=== PATIENT | male | born 1965 | race Caucasian/White ===

== ENCOUNTER → 2022-03-31 10:23 | Outpatient (CLI) | payer BC, SELFPAY ==
--- NOTE | 2022-03-31 | DI.RAD.S_ITS ---
PROCEDURE: XR WRIST LT MIN 3V INDICATIONS: ACUTE PAIN OF LEFT WRIST TECHNIQUE: 4 views of the wrist were acquired. COMPARISON: None. FINDINGS: Bones: There is an ununited ulnar styloid fracture of uncertain acuity. Scaphoid view: No evidence of scaphoid fracture. Soft tissues: No suspicious soft tissue calcifications. IMPRESSION: Ununited ulnar styloid fracture of uncertain acuity. Dictated by: Galo Quinn M.D. on 03/31/2022 at 11:58 Approved by: Galo Quinn M.D. on 03/31/2022 at 11:58
== END ==
PROVIDERS: PCP Internal Medicine; Referring Provider Physician Assistant; Visit Provider Physician Assistant
DX: S52.612K Displaced fracture of left ulna styloid process, subsequent encounter for closed fracture with nonunion (principal); M25.532 Pain in left wrist
CPT/HCPCS: 73110

== ENCOUNTER 2022-06-15 10:00 | Emergency (ER) | payer BC, SELFPAY ==
[2022-06-15] VITALS (10 sets, daily range): BP systolic 126–171; BP diastolic 76–92; PULSE 60–95; RESP 13–18; TEMP 36.1; O2SAT 97–100; BMI 29.7
[2022-06-15 10:47] LABS: Add Manual Diff / Slide Review NO; Basophils Absolute Auto 0 /uL (0-100); Basophils Percent Auto 0.4 % (0-2); Eosinophils Absolute Auto 200 /uL (0-450); Eosinophils Percent Auto 2.4 % (2-4); Hematocrit 40.7 % (41-53); Hemoglobin 14.1 g/dL (13.5-17.5); Lymphocytes Absolute Auto 1000 /uL (1100-4500); Lymphocytes Percent Auto 13.6 % (25-40); Mean Corpuscular HGB Conc 34.7 % (30-36); Mean Corpuscular Hemoglobin 30.7 PG (26-34); Mean Corpuscular Volume 88.4 fL (80-100); Monocytes Absolute Auto 600 /uL (0-900); Monocytes Percent Auto 8.7 % (3-14); Neutrophils Absolute Auto 5500 /uL (1500-7000); Neutrophils Percent Auto 74.9 % (50-75); Platelet Count 179 X10^3/uL (150-400); Red Cell Distribution Width 13.2 % (11.6-14.8); White Blood Cell Count 7.4 X10^3/uL (4.5-11.0)
[2022-06-15 11:00] LABS: Alanine Aminotransferase 36 IU/L (<50); Albumin 4.2 g/dL (3.5-5.0); Albumin Globulin Ratio 1.4 (1.0-2.8); Alkaline Phosphatase 64 U/L (38-126); Aspartate Aminotransferase 25 IU/L (17-59); BUN Creatinine Ratio 12.7 (6-22); Bilirubin Total 1.5 mg/dL (0.2-1.3); Blood Urea Nitrogen 17 mg/dL (9-20); Calcium 9.3 mg/dL (8.4-10.2); Carbon Dioxide 30 mmol/L (22-32); Chloride 99 mmol/L (98-107); Estimated Glomerular Filt Rate > 60 mL/min (>60); Globulin 2.9 g/dL (1.7-4.1); Glucose 124 mg/dL (70-100); HEMOLYSIS 17 (0-50); Lipase 69 U/L (23-300); Potassium 4.2 mmol/L (3.4-5.1); Sodium 134 mmol/L (137-145); Total Protein 7.1 g/dL (6.3-8.2)
--- NOTE | 2022-06-15 11:30 | ED.ABDPAIN ---
HPI - Abdominal Pain General Chief Complaint: Abdominal Pain Stated Complaint: stomach pain blockage reocurring 4 years Time Seen by Provider: 06/15/22 11:26 Source: patient Mode of arrival: Ambulatory History of Present Illness HPI narrative: This is a 57 year old male with history of diabetes hypertension dyslipidemia on metformin, atorvastatin, glimepiride and lisinopril. Patient states presents today for reoccurring abdominal discomfort. Patient states it is always on the left side that is fairly localized but sometimes spreads. States it has been going on intermittently for 4 years. He states most recent episode started yesterday sort of his left side and then radiates back towards his flank. He describes it as a burning pain. He states it is intermittent will sometimes go a couple months and then resolve. Used to be just a couple hours yesterday's been lasting throughout today has resolved intermittently but then returns. He states is having increasing frequency of symptoms. He states it used to happen more at nighttime but is happening sometimes during the day now. He is had issues for the last 4 days. He denies fevers or chills. He does feel nauseated with the pain in the last 2 days. No vomiting. States he can sometimes be constipated but has been stooling regularly had a bowel movement yesterday was soft formed without any black or blood. Patient states he took Tylenol his last dose was at 3:00 a.m. states it is significantly help the pain but not resolved it. He has had a colonoscopy for about a year ago but never had any imaging. No prior surgeries. No known drug allergies. No tobacco, alcohol once monthly, no illicit. Related Data Previous Rx's Medication Instructions Recorded tramadol 50 mg tablet 50 mg PO Q6H PRN pain #10 tabs 06/15/22 Allergies Allergy/AdvReac Type Severity Reaction Status Date / Time No Known Drug Allergies Allergy Verified 06/15/22 10:22 Review of Systems Review of Systems ROS Unobtainable: All systems reviewed & are unremarkable except as noted in HPI and below Patient History Social History Smoking Status: Never smoker Smoking Status: Never smoker alcohol intake frequency: holidays/special occasions only Substance Use Type: does not use Exam Narrative Exam Narrative: GENERAL: Alert and oriented x three, male in mild distress. HEENT: Head normocephalic, atraumatic, EOMI, pupils reactive, face symmetric, moist mucous membranes NECK: Supple, full range of motion CARDIOVASCULAR: Regular rate and rhythm without murmurs, rubs or gallops. RESPIRATORY: Breath sounds equal bilaterally, no wheezes rales or rhonchi. ABDOMEN: Soft, nontender. Normoactive bowel sounds all 4 quadrants. No guarding or rebound, rigidity, no mass. Patient I am able to palpate the area that he states typically hurts, no mass sort of on the left lateral upper abdomen about 3 cm below the ribs. There is no warmth, no erythema, no rash or skin changes. Patient has minimal tenderness. No other tenderness on exam. : No CVA tenderness EXTREMITIES: Normal range of motion, no clubbing or edema. Neurovascularly intact NEUROLOGICAL: Cranial nerves II through XII grossly intact. Moving all extremities SKIN: Warm, dry, no petechiae, no rashes or lesions. Initial Vital Signs Initial Vital Signs: Vital Signs Pulse Rate 95 H 06/15/22 10:12 Blood Pressure 171/92 H 06/15/22 10:12 Pulse Oximetry 99 06/15/22 10:12 Course Orders Ordered: ED Orders 06/15/22 10:28 EKG-12 Lead Stat 06/15/22 10:36 Complete Blood Count AUTO DIFF Stat Comprehensive Metabolic Panel Stat Lipase Stat 06/15/22 11:53 CT kidney ureter bladder (KUB) Stat 06/15/22 12:31 Urine Microscopic Stat Discontinued Medications Ondansetron HCl (Ondansetron 4 Mg Odt) 4 mg PO NOW PRN PRN Reason: Nausea And Vomiting Ondansetron HCl (Ondansetron 4 Mg/2 Ml Inj) 4 mg IV NOW PRN PRN Reason: Nausea And Vomiting Vital Signs Vital signs: Vital Signs - 8 hr 06/15/22 10:22 06/15/22 10:12 06/15/22 10:12 Temperature 97.0 F L Pulse Rate 77 95 H Respiratory Rate 18 Blood Pressure 171/92 H 171/92 H Pulse Oximetry 98 99 Oxygen Delivery Method Room Air 06/15/22 10:22 06/15/22 10:22 06/15/22 10:30 Temperature Pulse Rate 65 Respiratory Rate 13 Blood Pressure 148/79 H 147/81 H Pulse Oximetry 99 Oxygen Delivery Method 06/15/22 10:30 06/15/22 11:00 06/15/22 11:00 Temperature Pulse Rate 71 60 Respiratory Rate 14 14 Blood Pressure 134/82 Pulse Oximetry 98 97 Oxygen Delivery Method 06/15/22 11:30 06/15/22 11:30 06/15/22 12:44 Temperature Pulse Rate 72 Respiratory Rate 14 Blood Pressure 126/76 138/84 Pulse Oximetry 97 Oxygen Delivery Method 06/15/22 12:44 06/15/22 13:00 06/15/22 13:30 Temperature Pulse Rate 69 69 63 Respiratory Rate Blood Pressure Pulse Oximetry 98 98 100 Oxygen Delivery Method 06/15/22 14:00 06/15/22 14:13 06/15/22 14:13 Temperature Pulse Rate 70 73 Respiratory Rate Blood Pressure 128/84 Pulse Oximetry 99 99 Oxygen Delivery Method MDM - Abdominal Pain Lab Data 06/15/22 10:36 06/15/22 10:36 Labs: Lab Results 06/15/22 06/15/22 06/15/22 Range/Units 10:36 10:36 12:31 WBC 7.4 (4.5-11.0) X10^3/uL RBC 4.60 (4.5-5.9) X10^6/uL Hgb 14.1 (13.5-17.5) g/dL Hct 40.7 L (41-53) % MCV 88.4 (80-100) fL MCH 30.7 (26-34) PG MCHC 34.7 (30-36) % RDW 13.2 (11.6-14.8) % Plt Count 179 (150-400) X10^3/uL Neut % (Auto) 74.9 (50-75) % Lymph % (Auto) 13.6 L (25-40) % [place] % (Auto) 8.7 (3-14) % Eos % (Auto) 2.4 (2-4) % Baso % (Auto) 0.4 (0-2) % Neut # (Auto) 5500 (7624-0274) /uL Lymph # (Auto) 1000 L (5176-8229) /uL [place] # (Auto) 600 (0-900) /uL Eos # (Auto) 200 (0-450) /uL Baso # (Auto) 0 (0-100) /uL Sodium 134 L (137-145) mmol/L Potassium 4.2 (3.4-5.1) mmol/L Chloride 99 (98-107) mmol/L Carbon Dioxide 30 (22-32) mmol/L BUN 17 (9-20) mg/dL Creatinine 1.34 H (0.66-1.25) mg/dL Estimated GFR > 60 (>60) mL/min BUN/Creatinine Ratio 12.7 (6-22) Glucose 124 H (70-100) mg/dL Calcium 9.3 (8.4-10.2) mg/dL Total Bilirubin 1.5 H (0.2-1.3) mg/dL AST 25 (17-59) IU/L ALT 36 (<50) IU/L Alkaline Phosphatase 64 (38-126) U/L Total Protein 7.1 (6.3-8.2) g/dL Albumin 4.2 (3.5-5.0) g/dL Globulin 2.9 (1.7-4.1) g/dL Albumin/Globulin Ratio 1.4 (1.0-2.8) Lipase 69 (23-300) U/L Urine RBC 0-1/hpf (0-5/HPF) Urine WBC None seen (0-5/HPF) Urine Bacteria None seen (None) Ur Culture Indicated? Cult not indicated Point of care testing: Urine Dip Bedside Urine Glucose Negative Bedside Urine Bilirubin - Negative Bedside Urine Ketone +/- 5 Urine Specific [place] 1.015 Bedside Urine Occult Blood +/- Bedside Urine pH 6.0 Bedside Urine Protein - Negative Bedside Urine Urobilinogen - Negative Bedside Urine Nitrite - Negative Bedside Urine Leukocytes - Negative Esterase Imaging Data CT scan - abdomen/pelvis: Radiologist's Impression: [place] [address] CT Scan Report Signed Patient: Baljit Paez MR#: [id number] : 1965 Acct:[id number] Age/Sex: 57 / M Date of Service: 06/15/22 Loc: ED Accession Number: [id number] ?? Procedure: CT kidney ureter bladder (KUB) Ordering Provider: Mini Hernandez D.O. PROCEDURE:? CT KIDNEY URETER BLADDER (KUB) ? INDICATIONS:? left flank to abd pain, localized more upper intermittent ? TECHNIQUE:? Axial sections were acquired from the lung bases to the pubic symphysis.? Coronal and sagittal reformats were performed.? For radiation dose reduction, the following was used: ?automated exposure control, adjustment of mA and/or kV according to patient size.? ? COMPARISON:? None. ? FINDINGS:? Image quality:? Excellent.? ? Lung bases:? Unremarkable.? ? Heart:? No significant findings. ? URINARY: Right Kidney: ? No stones or hydronephrosis.? Right Ureter:? No hydroureter.? ? Left Kidney:? Moderate left hydronephrosis.? There is a 8 mm calculus within the left renal pelvis, with Hounsfield units of 138. Moderate left perinephric fat stranding is present.? Left Ureter:? No hydroureter.? ? Bladder:? Normal wall thickness. No stones. ? ? ? ABDOMEN: Liver:? Unremarkable.? ? Gallbladder:? Unremarkable.? ? Biliary ducts:? Unremarkable.? ? Pancreas:? Unremarkable.? ? Spleen:? Unremarkable.? ? Adrenal Glands:? Unremarkable.? ? ? Stomach and Bowel:? Stomach, small bowel loops, and colon are unremarkable.? Normal appendix. Peritoneum:? No abnormal intraperitoneal fluid.? No free air.? ? Ventral Wall: ? No hernia.? Abdominal Nodes:? No enlarged retroperitoneal or mesenteric lymph nodes.? Vessels:? Aorta and inferior vena cava are normal in size.? ? PELVIS: Pelvic Organs:? Unremarkable.? ? Pelvic Nodes: Unremarkable. Miscellaneous: No inguinal hernias are seen. ? ? ? Bones:? Unremarkable. ? IMPRESSION:? ? 1.? Left renal pelvic calculus associated with moderate left hydronephrosis. 2. Normal appendix.? ? Dictated by: Galo Quinn M.D. on 06/15/2022 at 12:05 ? ? Approved by: Galo Quinn M.D. on 06/15/2022 at 12:08?? ECG Data Attestation: I personally reviewed and interpreted this ECG as follows: Prior ECG tracings: not available for review Interpretation: Sinus rhythm rate of 63 PA 174 QRS of 98 QTC 411. T-wave inverted in lead 3. Acute elevation appreciated patient does have some nonspecific change. He does not have priors for comparison. MDM Narrative Medical decision making narrative: This is a 57-year-old male who is had intermittent abdominal pain in the same area on and off for 4 years. Patient states it is becoming little bit more frequent and painful in terms of intensity. He does have a history of diabetes hypertension dyslipidemia. Exam areas fairly localized on the left side there is no obvious palpable hernia there is no obvious rash, skin change or shingles. Some patient's symptoms seem a little bit more consistent with kidney stone. He was concerned about obstruction but he has been stooling regularly he is never had obstructive symptoms in terms of vomiting or not passing flatus or stool. Patient's labs show CBC with normal white count, hemoglobin of 14 normal platelets. Creatinine is 1.34 I do not have priors for comparison he is unsure if this is his baseline or not. He does follow regularly with a physician. Electrolytes are normal, bilirubin is 1.5 AST ALT are 08/08/2035 and lipase is 69 pain is all localized to the left. Patient was able to give a urine sample after discussion plan for CT KUB to evaluate for kidney stone mass or other change I do not have contrast CT available today. We discussed ultrasound but this would not give any visualization of the bowel which I think might be helpful. Patient's CT does show an 8 mm left renal pelvis stone. Patient's creatinine is 1.32 was able to find labs from his prior physician he was 0.98 on 06/10 and 1.1 in 2021 for his creatinine. Discussed with patient his pain is well-controlled. Discussed I think this is the source of his pain today. Talked with Urology as I think he would benefit from potential intervention but likely does not require hospitalization. Urine does not show signs of infection today, does not have nitrates leuks no bacteria, no white cells 0-[address] Kasper with Urology: He reviewed patient's images and urine. We discussed creatinine is bumped up a little bit there is some moderate hydro. We do not have priors imaging for evaluation. He states it maybe ball valving causing some of his symptoms intermittently. He is happy to see the patient in the office both agree that patient is appropriate for discharge today his pain is well-controlled he is currently asymptomatic at this time. Discussed return precautions he does recommend patient follow-up with him for intervention. Discharge Plan Departure Patient Disposition: Home Clinical Impression: Kidney stone on left side Instructions: Kidney Stones -- Adult Activity Restrictions/Additional Instructions: You have a kidney stone visualized in the left renal pelvis this is where the kidney and ureter meet and is likely causing your intermittent pain. Please set up follow-up with Urology, I spoke with them today. Call the office to set up an appointment. They recommend that you see them you will likely need intervention for your kidney stone. You may take Tylenol up to a 1000 mg every 6 hours as needed for pain. If in adequate you can take tramadol 1-2 tablets every 6 hours as needed. This medication can make you sleepy do not drive, perform hazardous activities or make any major decisions while taking it. This medication will make you constipated please take a stool softener once to twice daily until stools are soft and regular. Prescription sent to [facility] in [place]. Please return for fevers, worsening or intractable pain, persistent vomiting, black or bloody stools, passing out or other new or concerning changes. Prescriptions: New tramadol 50 mg tablet 50 mg PO Q6H PRN (Reason: pain) Qty: 10 0RF Referrals: Eddi Kasper MD [Physician] - Liz Tony MD [Primary Care Provider] - Stand Alone Forms: Patient Portal/API
--- NOTE | 2022-06-15 11:53 | DI.CT.S_ITS ---
PROCEDURE: CT KIDNEY URETER BLADDER (KUB) INDICATIONS: left flank to abd pain, localized more upper intermittent TECHNIQUE: Axial sections were acquired from the lung bases to the pubic symphysis. Coronal and sagittal reformats were performed. For radiation dose reduction, the following was used: automated exposure control, adjustment of mA and/or kV according to patient size. COMPARISON: None. FINDINGS: Image quality: Excellent. Lung bases: Unremarkable. Heart: No significant findings. URINARY: Right Kidney: No stones or hydronephrosis. Right Ureter: No hydroureter. Left Kidney: Moderate left hydronephrosis. There is a 8 mm calculus within the left renal pelvis, with Hounsfield units of 138. Moderate left perinephric fat stranding is present. Left Ureter: No hydroureter. Bladder: Normal wall thickness. No stones. ABDOMEN: Liver: Unremarkable. Gallbladder: Unremarkable. Biliary ducts: Unremarkable. Pancreas: Unremarkable. Spleen: Unremarkable. Adrenal Glands: Unremarkable. Stomach and Bowel: Stomach, small bowel loops, and colon are unremarkable. Normal appendix. Peritoneum: No abnormal intraperitoneal fluid. No free air. Ventral Wall: No hernia. Abdominal Nodes: No enlarged retroperitoneal or mesenteric lymph nodes. Vessels: Aorta and inferior vena cava are normal in size. PELVIS: Pelvic Organs: Unremarkable. Pelvic Nodes: Unremarkable. Miscellaneous: No inguinal hernias are seen. Bones: Unremarkable. IMPRESSION: 1. Left renal pelvic calculus associated with moderate left hydronephrosis. 2. Normal appendix. Dictated by: Galo Quinn M.D. on 06/15/2022 at 12:05 Approved by: Galo Quinn M.D. on 06/15/2022 at 12:08
[2022-06-15 12:41] LABS: Bacteria Urine None Seen; Culture Indicated Urine Cult Not Indicated; RBC Urine 0-1/HPF (0-5/HPF); WBC Urine None Seen (0-5/HPF)
== END 2022-06-15 14:21 | disposition home or self-care (01) ==
PROVIDERS: Emergency Provider Emergency Medicine; PCP Internal Medicine
DX: N20.0 Calculus of kidney (principal); R10.9 Unspecified abdominal pain
CPT/HCPCS: 36415; 74176; 80053; 81003; 81015; 83690; 85025; 93005; 99284

== ENCOUNTER → 2022-06-22 13:59 | Outpatient (CLI) | payer BC, SELFPAY ==
--- NOTE | 2022-06-22 14:01 | DI.RAD.S_ITS ---
PROCEDURE: XR KUB INDICATIONS: Left kidney stone TECHNIQUE: One view of the abdomen acquired. COMPARISON: [facility], CT, CT KIDNEY URETER BLADDER (KUB), 06/15/2022, 11:51. FINDINGS: Surgical changes and devices: None. Bowel: Bowel gas pattern is normal. Soft tissues: Left kidney stone measuring approximately 1.4 cm, appears similar. No suspicious abdominal calcifications. Visualized solid organ contours appear normal in size. Bones: No suspicious bony lesions. IMPRESSION: Left kidney stone appears unchanged. Dictated by: Alberto Acosta M.D. on 06/22/2022 at 16:15 Approved by: Alberto Acosta M.D. on 06/22/2022 at 16:16
== END ==
PROVIDERS: PCP Internal Medicine; Referring Provider Urology; Visit Provider Urology
DX: N20.0 Calculus of kidney (principal); R31.29 Other microscopic hematuria; R39.9 Unspecified symptoms and signs involving the genitourinary system; R35.0 Frequency of micturition; Z77.22 Contact with and (suspected) exposure to environmental tobacco smoke (acute) (chronic)
CPT/HCPCS: 74018; 81002

== ENCOUNTER 2022-06-29 06:09 | Day surgery (SDC) | payer BC, SELFPAY ==
[2022-06-29] VITALS (7 sets, daily range): BP systolic 140–157; BP diastolic 84–101; PULSE 61–87; RESP 12–20; TEMP 36.1–36.3; O2SAT 96–100; BMI 29.0
[2022-06-29] MEDS: LACTATED RINGERS 1,000 ML 42 ML IV ×2 (07:15→08:12)
--- NOTE | 2022-06-29 07:36 | PM.PREOP ---
Pre-operative Note COVID-19 COVID-19 status: Not tested Criteria for continued procedure: Non-surgical alternatives not available or appropriate per current SOC Interval Note History & Physical reviewed/Exam performed by Physician: Yes Changes to H&P: No
[2022-06-29] MEDS: CEFAZOLIN 2 GM/100 ML PREMIX 100 ML IV (07:40)
--- NOTE | 2022-06-29 07:59 | SUR.OPER ---
Lithotomy on ESWL bed, head on pillow, arms secured at sides and wrapped in gelpads. Legs secured in stirrups provided for ESWL.
--- NOTE | 2022-06-29 08:31 | PM.OP.1 ---
Procedure & Clinicians Procedure: Left extracorporeal shockwave lithotripsy with cystoscopy and left ureteral stent placement Same procedure as scheduled: Yes Indications: This 57-year-old male presented with complaints of abdominal pain and undergoing workup with a CT scan was found to have a stone in his left renal pelvis. He presents this time for treatment of the stone. Surgeon: Eddi Kasper Click Yes if Unassisted: Yes Anesthesia Type: General Operative Notes Findings: Urethral meatus is normal, urethra is normal along its length with normal mucosa sphincter as well coapted, the prostate shows minimal to moderate obstructive character with a minimally elevated bladder neck and normal mucosa. Ureteral orifices in normal position with clear efflux no other mucosal or other abnormality was noted within the bladder. The stone was noted to be in the renal pelvis. It received 1250 shocks at level 7 and fragmented very very well. In fact it appeared to be a cloud of dust. A 7 Slovenian by multi length stent was left in good position in the left collecting system without a string. Closure Type: not applicable Specimen(s): none sent Prosthetic devices, grafts, tissues, transplants, or devices: Seven [place]ian by multi length ureteral stent in the left collecting system no string Estimated Blood Loss (mL): 5 Blood products transfused: none Procedure in detail: Procedure in detail: After informed consent was obtained, the patient was identified and brought to the operating room where he was placed in the supine position on the lithotriptor patient then had anesthesia induced and maintained. Showing an adequate level of anesthesia the patient was transitioned to the lithotomy position where he was prepped, draped, prepared for Transurethral procedure. After prepping, draping, time-out and ensuring an adequate level of anesthesia a 22 Slovenian cystoscope was passed through the urethra prostate and into the bladder where cystoscopy was performed. The left ureteral orifice was once again identified and a guidewire was passed up in the collecting system under fluoroscopic visualization. The stent was then passed over the wire in a coaxial fashion position in the renal pelvis under fluoroscopic visualization in the bladder under direct vision. Then using the grasping forceps the nylon harness was removed and the stent was left in good position. Bladder was drained scope was removed. The patient then had the stone positioned at F2 via the imaging system and shockwave delivered at level 7 gradually ramping up to that level. Periodic reimaging and re localization of the stone was performed to ensure maximal androgen delivery to the stone. At a 1000 shock waves shockwave head was rotated out and fluoroscopy performed there sterile appeared to be a little bit of density within a cloud of dust and so another 250 shockwave for delivered at level 7. With this completed the shockwave head was then once again rotated out fluoroscopy performed and the stone appeared to be completely fragmented. At this point the patient was awakened having tolerated the procedure well and transferred to the postanesthesia care unit for recovery. There were no complications. Complications: none Post-operative Condition: stable Disposition: PACU Plan for aftercare: Discharge to home, patient to strain urine and save any fragments and bring these to follow-up.
[2022-06-29] MEDS: OXYBUTYNIN 5 MG TABLET PO (08:45)
[2022-06-29] MEDS: PHENAZOPYRIDINE 100 MG TABLET 200 MG PO (08:45)
== END 2022-06-29 09:16 | disposition home or self-care (01) ==
PROVIDERS: PCP Internal Medicine; Referring Provider Urology; Visit Provider Urology
PROC: (CPT 50590; principal; 2022-06-29 07:45)
PROC: (CPT 50590; 2022-06-29 07:45)
DX: N20.0 Calculus of kidney (principal)
CPT/HCPCS: 50590; 52332; 82962; J0690; J1100; J1885; J2250; J2405; J2704; J3010

== ENCOUNTER → 2022-07-02 12:49 | Outpatient (CLI) | payer BC, SELFPAY ==
--- NOTE | 2022-07-02 12:50 | DI.RAD.S_ITS ---
PROCEDURE: XR KUB INDICATIONS: hematuria TECHNIQUE: One view of the abdomen acquired. COMPARISON: [facility], , XR KUB, 06/22/2022, 13:59. FINDINGS: Surgical changes and devices: Left-sided ureteral stent is seen in place. Bowel: Bowel gas pattern is normal. Soft tissues: Ill-defined calcifications are seen in lower pole of left kidney. Visualized solid organ contours appear normal in size. Bones: No suspicious bony lesions. IMPRESSION: Suggestion of small stones in lower pole left kidney. Left-sided ureteral stent in place. No gross free air. Dictated by: Linden Rivera M.D. on 07/02/2022 at 13:25 Approved by: Linden Rivera M.D. on 07/02/2022 at 13:25
== END ==
PROVIDERS: PCP Internal Medicine; Referring Provider Urology; Visit Provider Urology
DX: R31.29 Other microscopic hematuria (principal); N20.0 Calculus of kidney; Z96.0 Presence of urogenital implants
CPT/HCPCS: 74018; 82365

== ENCOUNTER → 2022-07-02 13:10 | Outpatient (CLI) | payer BC, SELFPAY ==
[2022-07-10 00:07] LABS: Size 4x9 mm (.)
== END ==
PROVIDERS: Urology; PCP Internal Medicine; Visit Provider Specialist
DX: N20.0 Calculus of kidney (principal)
CPT/HCPCS: 82365

== ENCOUNTER → 2022-07-09 09:14 | Outpatient (CLI) | payer BC, SELFPAY | PROVIDERS: PCP Internal Medicine; Visit Provider Urology | DX: N20.0 Calculus of kidney (principal); R31.29 Other microscopic hematuria; R39.9 Unspecified symptoms and signs involving the genitourinary system; Z96.0 Presence of urogenital implants | CPT/HCPCS: 81002; 87077; 87086; 87185; 87186 ==

== ENCOUNTER 2022-07-11 19:57 | Inpatient (IN) | payer BC, SELFPAY ==
[2022-07-11] VITALS (16 sets, daily range): BP systolic 80–116; BP diastolic 52–73; PULSE 84–137; RESP 17–29; TEMP 36.9–38.4; O2SAT 93–98; BMI 29.8
--- NOTE | 2022-07-11 20:12 | DI.RAD.S_ITS ---
PROCEDURE: XR ACUTE ABDOMEN SERIES INDICATIONS: suspected sepsis TECHNIQUE: One view chest and two views of the abdomen were acquired. COMPARISON: [facility], CT, CT KIDNEY URETER BLADDER (KUB), 06/15/2022, 11:51. [facility], CR, XR KUB, 07/02/2022, 12:50. FINDINGS: Surgical changes and devices: A left ureteral stent appears similar in position. Chest: There are low lung volumes with a few linear opacities medially in the lung bases likely representing atelectasis. Heart size is normal. No pleural effusions. No pneumoperitoneum. Abdomen: There are few scattered small bowel air-fluid levels without abnormal gaseous distention of bowel loops. A few clustered densities projecting over the inferior pole of the left kidney suggestive of renal stones are redemonstrated. Bones: No suspicious bony lesions. IMPRESSION: 1. Nonspecific bowel gas pattern with a few scattered air-fluid levels within nondilated small bowel loops. The differential includes a gastroenteritis, ileus, or developing obstruction. 2. Small clustered densities suggestive of left renal stones redemonstrated. Dictated by: Payam Rollins M.D. on 07/11/2022 at 21:10 Approved by: Payam Rollins M.D. on 07/11/2022 at 21:14
--- NOTE | 2022-07-11 20:30 | ED_ITS ---
HPI - General Adult <Baljit Chand DO - Last Filed: 07/12/22 18:11> General Chief complaint: Urogenital-Male Stated complaint: Shaking, Hot Time Seen by Provider: 07/11/22 20:17 Source: patient Mode of arrival: Ambulatory Limitations: no limitations History of Present Illness HPI narrative: Patient is a 57-year-old male who is here for evaluation of fevers had fast heart rate not feeling well. His symptoms have been going on for approximately 48 hours. He does have a left-sided ureteral stent that was placed a couple weeks ago. He would an appointment on Tuesday with his urologist to discuss potentially having the stent removed however the decision was made to keep it in a while longer because there was still some debris in his left kidney based on a x-ray. States that after that appointment he started to feel poorly. He did have a urine sample performed at that time. He states over the past 48 hours his symptoms have worsened. He is still tolerating oral intake. Is having fevers. No chest pain. No shortness of breath. Is having some dysuria but this really has not changed since having the catheter in place. He is not having any blood in his urine. No change in bowel habits. Is not currently on antibiotics. Related Data Home Medications Medication Instructions Recorded Confirmed atorvastatin 20 mg tablet 20 mg PO DAILY 06/22/22 07/12/22 glimepiride 20 mg PO DAILY 06/22/22 07/12/22 lisinopril 20 mg tablet 20 mg PO DAILY 06/22/22 07/12/22 metformin 1,000 mg tablet 1,000 mg PO BID 06/22/22 07/12/22 Allergies Allergy/AdvReac Type Severity Reaction Status Date / Time No Known Drug Allergies Allergy Verified 07/09/22 09:02 Review of Systems <DO Edison Diaz Last Filed: 07/12/22 18:11> Review of Systems ROS Unobtainable: All systems reviewed & are unremarkable except as noted in HPI and below Patient History <DO Edison Diaz Last Filed: 07/12/22 18:11> Medical History History of broken finger History of high blood pressure History of kidney stones Hx of diabetes mellitus Lower urinary tract symptoms Microscopic hematuria Retained ureteral stent Secondhand smoke exposure Family History Father CAD (coronary artery disease) Hyperlipidemia Hypertension Mother Diabetes mellitus Hyperlipidemia Hypertension Thyroid disorder Urinary tract infection Social History marital status: unmarried,single number of children: 0 household members: none Smoking Status: Never smoker alcohol intake: former caffeine: Yes Type(s) of exercise: none Smoking Status: Never smoker alcohol intake frequency: holidays/special occasions only Substance Use Type: does not use Exam <DO Edison Diaz Last Filed: 07/12/22 18:11> Initial Vital Signs Initial Vital Signs: Vital Signs Temperature 98.4 F 07/11/22 20:05 Pulse Rate 137 H 07/11/22 20:05 Respiratory Rate 22 07/11/22 20:05 Blood Pressure 116/73 07/11/22 20:05 Pulse Oximetry 98 07/11/22 20:05 Oxygen Delivery Method Room Air 07/11/22 20:05 Const General: cooperative and ill appearing HENMT Head: normal to inspection and normocephalic Resp Effort & Inspection: normal respiratory effort Auscultation: clear to auscultation bilaterally Cardio Rate: tachycardic Rhythm: regular rhythm GI Inspection: normal to inspection Palpation: soft, No firm and No tender Skin General: no rashes or lesions noted Neuro General: patient alert, patient awake, patient oriented x3 and moves all extremities Cognition: normal cognition Speech: speech normal Extrem General: normal to inspection and capillary refill normal Psych Appearance: grossly normal and well kempt <Rosario Sargent DO - Last Filed: 07/12/22 19:31> Initial Vital Signs Initial Vital Signs: Vital Signs Temperature 98.4 F 07/11/22 20:05 Pulse Rate 137 H 07/11/22 20:05 Respiratory Rate 22 07/11/22 20:05 Blood Pressure 116/73 07/11/22 20:05 Pulse Oximetry 98 07/11/22 20:05 Oxygen Delivery Method Room Air 07/11/22 20:05 Scores <DO Edison Diaz Last Filed: 07/12/22 18:11> GCS Mykel coma scale eye opening: Spontaneous Mykel coma scale verbal response: Orientated Mykel coma scale motor response: Obey commands Williamson coma scale total score: 15 <DO Edison Huynh Last Filed: 07/12/22 19:31> GCS Williamson coma scale total score: 15 Course <Baljit Rodriguezcharity DO - Last Filed: 07/12/22 18:11> Orders Ordered: Acetaminophen (Acetaminophen 325 Mg Tablet) 650 mg PO Q6H PRN PRN Reason: Fever/Mild Pain (1-3) Last Admin: 07/12/22 15:47 Dose: 650 mg Documented By: HCW Acetaminophen (Acetaminophen 650 Mg Supp) 650 mg [place] Q6H PRN PRN Reason: Fever/Mild Pain (1-3) Atorvastatin Calcium (Atorvastatin 20 Mg Tablet) 20 mg PO DAILY [facility] Sodium Chloride (Normal Saline 0.9%) 1,000 mls @ 125 mls/hr IV CONT FELIX Last Infusion: 07/12/22 01:43 Dose: 0 mls/hr Documented By: Infusion: 07/12/22 00:05 Dose: 500 mls/hr Documented By: Admin: 07/11/22 22:35 Dose: 125 mls/hr Documented By: BS Piperacillin Sod/Tazobactam (Sod 4.5 gm/ Sodium Chloride) 100 mls @ 25 mls/hr I V Q8H FELIX Last Admin: 07/12/22 18:30 Dose: 25 mls/hr Documented By: Infusion: 07/12/22 18:30 Dose: 0 mls/hr Documented By: Infusion: 07/12/22 12:23 Dose: 0 mls/hr Documented By: Admin: 07/12/22 11:33 Dose: 100 mls/hr Documented By: Infusion: 07/12/22 07:03 Dose: 0 mls/hr Documented By: Admin: 07/12/22 03:02 Dose: 25 mls/hr Documented By: GC Sodium Chloride (Normal Saline 0.9%) 1,000 mls @ 150 mls/hr IV CONT FELIX Last Infusion: 07/12/22 08:47 Dose: 0 mls/hr Documented By: Admin: 07/12/22 01:53 Dose: 150 mls/hr Documented By: GC Sodium Chloride (Normal Saline 0.9%) 1,000 mls @ 84 mls/hr IV CONT FELIX Last Infusion: 07/12/22 18:56 Dose: 84 mls/hr Documented By: Admin: 07/12/22 16:13 Dose: 150 mls/hr Documented By: Infusion: 07/12/22 15:39 Dose: 150 mls/hr Documented By: Infusion: 07/12/22 10:06 Dose: 150 mls/hr Documented By: Infusion: 07/12/22 09:52 Dose: 0 mls/hr Documented By: Admin: 07/12/22 08:45 Dose: 150 mls/hr Documented By: ZAINAB Ketorolac Tromethamine (Ketorolac 30 Mg/Ml Vial) 15 mg IV Q6H [facility] Stop: 07/14/22 23:01 Last Admin: 07/12/22 17:05 Dose: 15 mg Documented By: ALLEN Lisinopril (Lisinopril 20 Mg Tablet) 20 mg PO DAILY [facility] Metformin HCl (Metformin Hcl 500 Mg Tablet) 1,000 mg PO BID [facility] Nf - Glimepiride 20 (Mg) 20 mg PO DAILY [facility] Ondansetron HCl (Ondansetron 4 Mg Odt) 4 mg SL NOW PRN PRN Reason: Nausea And Vomiting Ondansetron HCl (Ondansetron 4 Mg/2 Ml Inj) 4 mg IV NOW PRN PRN Reason: Nausea And Vomiting Discontinued Medications Acetaminophen (Acetaminophen 325 Mg Tablet) 650 mg PO NOW ONE Stop: 07/11/22 21:11 Last Admin: 07/11/22 21:15 Dose: 650 mg Documented By: MANUELITO Acetaminophen (Acetaminophen 325 Mg Tablet) 975 mg PO NOW ONE Stop: 07/12/22 08:03 Last Admin: 07/12/22 08:08 Dose: 975 mg Documented By: ZAINAB Acetaminophen (Acetaminophen 650 Mg Supp) 650 mg WV Q6HR PRN PRN Reason: Fever/Mild Pain (1-3) Sodium Chloride (Normal Saline 0.9%) 1,000 mls @ 1,000 mls/hr IV BOLUS ONE Stop: 07/11/22 21:11 Last Infusion: 07/11/22 22:37 Dose: 0 mls/hr Documented By: Admin: 07/11/22 20:39 Dose: 1,000 mls/hr Documented By: MANUELITO Ceftriaxone Sodium 1,000 mg/ (Sodium Chloride) 100 mls @ 200 mls/hr IV NOW ONE Stop: 07/11/22 20:26 Last Infusion: 07/11/22 21:36 Dose: 0 mls/hr Documented By: Admin: 07/11/22 21:01 Dose: 200 mls/hr Documented By: BS Sodium Chloride (Normal Saline 0.9%) 1,000 mls @ 1,000 mls/hr IV BOLUS ONE Stop: 07/11/22 21:55 Last Infusion: 07/11/22 22:38 Dose: 0 mls/hr Documented By: Admin: 07/11/22 21:16 Dose: 1,000 mls/hr Documented By: MANUELITO Ceftriaxone Sodium 1,000 mg/ (Sodium Chloride) 100 mls @ 200 mls/hr IV NOW ONE Stop: 07/11/22 21:54 Last Infusion: 07/11/22 23:10 Dose: 0 mls/hr Documented By: Admin: 07/11/22 22:36 Dose: 200 mls/hr Documented By: MANUELITO Piperacillin Sod/Tazobactam (Sod 4.5 gm/ Sodium Chloride) 100 mls @ 25 mls/hr IV Q8H FLEIX Last Admin: 07/11/22 23:07 Dose: Not Given Documented By: MANUELITO Piperacillin Sod/Tazobactam (Sod 4.5 gm/ Sodium Chloride) 100 mls @ 200 mls/hr IV NOW ONE Stop: 07/11/22 22:44 Last Infusion: 07/11/22 23:13 Dose: 0 mls/hr Documented By: Admin: 07/11/22 22:13 Dose: 200 mls/hr Documented By: MANUELITO Sodium Chloride (Normal Saline 0.9%) 1,000 mls @ 1,000 mls/hr IV BOLUS ONE Stop: 07/11/22 23:41 Last Infusion: 07/11/22 23:12 Dose: 0 mls/hr Documented By: Admin: 07/11/22 22:40 Dose: 1,000 mls/hr Documented By: MANUELITO Lactated Ringer's (Lactated Ringers) 1,000 mls @ 1,000 mls/hr IV BOLUS ONE Stop: 07/12/22 03:49 Last Infusion: 07/12/22 04:00 Dose: 0 mls/hr Documented By: Admin: 07/12/22 02:57 Dose: 1,000 mls/hr Documented By: VALENTINO Ketorolac Tromethamine (Ketorolac 30 Mg/Ml Vial) 30 mg IV NOW ONE Stop: 07/11/22 21:53 Last Admin: 07/11/22 22:00 Dose: 30 mg Documented By: BS Vital Signs Vital signs: Vital Signs - 8 hr 07/12/22 00:15 07/12/22 00:15 07/12/22 00:30 Temperature Pulse Rate 84 Respiratory Rate 18 Blood Pressure 85/50 L 85/50 L Pulse Oximetry 94 07/12/22 00:30 07/12/22 00:45 07/12/22 00:45 Temperature Pulse Rate 78 82 Respiratory Rate 19 19 Blood Pressure 80/53 L Pulse Oximetry 95 94 07/12/22 01:00 07/12/22 01:00 07/12/22 01:01 Temperature Pulse Rate 78 79 Respiratory Rate 18 16 Blood Pressure 78/53 L Pulse Oximetry 94 96 07/12/22 01:01 07/12/22 01:15 07/12/22 01:15 Temperature Pulse Rate 78 Respiratory Rate 18 Blood Pressure 89/55 L 93/55 L Pulse Oximetry 95 07/12/22 01:30 07/12/22 01:30 07/12/22 01:45 Temperature Pulse Rate 71 71 Respiratory Rate 16 19 Blood Pressure 85/50 L Pulse Oximetry 96 97 07/12/22 01:45 07/12/22 02:00 07/12/22 02:00 Temperature Pulse Rate 71 Respiratory Rate 19 Blood Pressure 84/51 L 94/53 L Pulse Oximetry 97 07/12/22 02:15 07/12/22 02:15 07/12/22 02:41 Temperature 97.7 F Pulse Rate 69 74 Respiratory Rate 17 Blood Pressure 92/53 L Pulse Oximetry 97 99 07/12/22 02:46 07/12/22 02:50 07/12/22 02:50 Temperature Pulse Rate 69 69 Respiratory Rate 18 20 Blood Pressure 82/50 L Pulse Oximetry 100 100 07/12/22 03:00 07/12/22 03:00 07/12/22 03:15 Temperature Pulse Rate 68 67 Respiratory Rate 18 17 Blood Pressure 81/53 L Pulse Oximetry 100 100 07/12/22 03:16 07/12/22 03:16 07/12/22 03:30 Temperature Pulse Rate 69 Respiratory Rate 17 Blood Pressure 83/52 L 86/50 L Pulse Oximetry 100 07/12/22 03:30 07/12/22 03:45 07/12/22 03:45 Temperature Pulse Rate 64 67 Respiratory Rate 17 14 Blood Pressure 87/52 L Pulse Oximetry 100 98 07/12/22 04:00 07/12/22 04:00 07/12/22 04:15 Temperature Pulse Rate 64 Respiratory Rate 18 Blood Pressure 94/54 L 95/56 L Pulse Oximetry 97 07/12/22 04:15 07/12/22 04:30 07/12/22 04:30 Temperature Pulse Rate 65 65 Respiratory Rate 18 18 Blood Pressure 88/54 L Pulse Oximetry 98 97 07/12/22 04:45 07/12/22 04:45 07/12/22 05:00 Temperature Pulse Rate 68 Respiratory Rate 20 Blood Pressure 95/58 L 109/75 Pulse Oximetry 97 07/12/22 05:00 07/12/22 05:15 07/12/22 05:15 Temperature 97.6 F Pulse Rate 80 77 Respiratory Rate 23 27 H Blood Pressure 110/70 Pulse Oximetry 98 96 07/12/22 05:30 07/12/22 05:30 07/12/22 05:45 Temperature Pulse Rate 86 Respiratory Rate 23 Blood Pressure 113/71 121/73 Pulse Oximetry 96 07/12/22 05:45 07/12/22 06:00 07/12/22 06:00 Temperature Pulse Rate 98 H 86 Respiratory Rate 31 H 19 Blood Pressure 122/71 Pulse Oximetry 97 97 07/12/22 06:15 07/12/22 06:15 07/12/22 06:30 Temperature Pulse Rate 94 H 93 H Respiratory Rate 28 H Blood Pressure 125/80 Pulse Oximetry 95 07/12/22 07:00 07/12/22 06:30 07/12/22 07:20 Temperature 98.9 F Pulse Rate 97 H 90 Respiratory Rate Blood Pressure 131/67 Pulse Oximetry 07/12/22 07:30 07/12/22 07:30 Temperature Pulse Rate 93 H Respiratory Rate 19 Blood Pressure 130/65 Pulse Oximetry <Rosario Sargent DO - Last Filed: 07/12/22 19:31> Orders Ordered: Acetaminophen (Acetaminophen 325 Mg Tablet) 650 mg PO Q6H PRN PRN Reason: Fever/Mild Pain (1-3) Last Admin: 07/12/22 15:47 Dose: 650 mg Documented By: HCW Acetaminophen (Acetaminophen 650 Mg Supp) 650 mg WV Q6H PRN PRN Reason: Fever/Mild Pain (1-3) Atorvastatin Calcium (Atorvastatin 20 Mg Tablet) 20 mg PO DAILY [facility] Sodium Chloride (Normal Saline 0.9%) 1,000 mls @ 125 mls/hr IV CONT FELIX Last Infusion: 07/12/22 01:43 Dose: 0 mls/hr Documented By: Infusion: 07/12/22 00:05 Dose: 500 mls/hr Documented By: Admin: 07/11/22 22:35 Dose: 125 mls/hr Documented By: BS Piperacillin Sod/Tazobactam (Sod 4.5 gm/ Sodium Chloride) 100 mls @ 25 mls/hr IV Q8H FELIX Last Admin: 07/12/22 18:30 Dose: 25 mls/hr Documented By: Infusion: 07/12/22 18:30 Dose: 0 mls/hr Documented By: Infusion: 07/12/22 12:23 Dose: 0 mls/hr Documented By: Admin: 07/12/22 11:33 Dose: 100 mls/hr Documented By: Infusion: 07/12/22 07:03 Dose: 0 mls/hr Documented By: Admin: 07/12/22 03:02 Dose: 25 mls/hr Documented By: VALENTINO Sodium Chloride (Normal Saline 0.9%) 1,000 mls @ 150 mls/hr IV CONT FELIX Last Infusion: 07/12/22 08:47 Dose: 0 mls/hr Documented By: Admin: 07/12/22 01:53 Dose: 150 mls/hr Documented By: GC Sodium Chloride (Normal Saline 0.9%) 1,000 mls @ 84 mls/hr IV CONT FELIX Last Infusion: 07/12/22 18:56 Dose: 84 mls/hr Documented By: Admin: 07/12/22 16:13 Dose: 150 mls/hr Documented By: Infusion: 07/12/22 15:39 Dose: 150 mls/hr Documented By: Infusion: 07/12/22 10:06 Dose: 150 mls/hr Documented By: Infusion: 07/12/22 09:52 Dose: 0 mls/hr Documented By: Admin: 07/12/22 08:45 Dose: 150 mls/hr Documented By: ZAINAB Ketorolac Tromethamine (Ketorolac 30 Mg/Ml Vial) 15 mg IV Q6H FELIX Stop: 07/14/22 23:01 Last Admin: 07/12/22 17:05 Dose: 15 mg Documented By: HCW Lisinopril (Lisinopril 20 Mg Tablet) 20 mg PO DAILY [facility] Metformin HCl (Metformin Hcl 500 Mg Tablet) 1,000 mg PO BID [facility] Nf - Glimepiride 20 (Mg) 20 mg PO DAILY [facility] Ondansetron HCl (Ondansetron 4 Mg Odt) 4 mg SL NOW PRN PRN Reason: Nausea And Vomiting Ondansetron HCl (Ondansetron 4 Mg/2 Ml Inj) 4 mg IV NOW PRN PRN Reason: Nausea And Vomiting Discontinued Medications Acetaminophen (Acetaminophen 325 Mg Tablet) 650 mg PO NOW ONE Stop: 07/11/22 21:11 Last Admin: 07/11/22 21:15 Dose: 650 mg Documented By: MANUELITO Acetaminophen (Acetaminophen 325 Mg Tablet) 975 mg PO NOW ONE Stop: 07/12/22 08:03 Last Admin: 07/12/22 08:08 Dose: 975 mg Documented By: ZAINAB Acetaminophen (Acetaminophen 650 Mg Supp) 650 mg WV Q6HR PRN PRN Reason: Fever/Mild Pain (1-3) Sodium Chloride (Normal Saline 0.9%) 1,000 mls @ 1,000 mls/hr IV BOLUS ONE Stop: 07/11/22 21:11 Last Infusion: 07/11/22 22:37 Dose: 0 mls/hr Documented By: Admin: 07/11/22 20:39 Dose: 1,000 mls/hr Documented By: MANUELITO Ceftriaxone Sodium 1,000 mg/ (Sodium Chloride) 100 mls @ 200 mls/hr IV NOW ONE Stop: 07/11/22 20:26 Last Infusion: 07/11/22 21:36 Dose: 0 mls/hr Documented By: Admin: 07/11/22 21:01 Dose: 200 mls/hr Documented By: MANUELITO Sodium Chloride (Normal Saline 0.9%) 1,000 mls @ 1,000 mls/hr IV BOLUS ONE Stop: 07/11/22 21:55 Last Infusion: 07/11/22 22:38 Dose: 0 mls/hr Documented By: Admin: 07/11/22 21:16 Dose: 1,000 mls/hr Documented By: MANUELITO Ceftriaxone Sodium 1,000 mg/ (Sodium Chloride) 100 mls @ 200 mls/hr IV NOW ONE Stop: 07/11/22 21:54 Last Infusion: 07/11/22 23:10 Dose: 0 mls/hr Documented By: Admin: 07/11/22 22:36 Dose: 200 mls/hr Documented By: BS Piperacillin Sod/Tazobactam (Sod 4.5 gm/ Sodium Chloride) 100 mls @ 25 mls/hr IV Q8H FELIX Last Admin: 07/11/22 23:07 Dose: Not Given Documented By: BS Piperacillin Sod/Tazobactam (Sod 4.5 gm/ Sodium Chloride) 100 mls @ 200 mls/hr IV NOW ONE Stop: 07/11/22 22:44 Last Infusion: 07/11/22 23:13 Dose: 0 mls/hr Documented By: Admin: 07/11/22 22:13 Dose: 200 mls/hr Documented By: MANUELITO Sodium Chloride (Normal Saline 0.9%) 1,000 mls @ 1,000 mls/hr IV BOLUS ONE Stop: 07/11/22 23:41 Last Infusion: 07/11/22 23:12 Dose: 0 mls/hr Documented By: Admin: 07/11/22 22:40 Dose: 1,000 mls/hr Documented By: MANUELITO Lactated Ringer's (Lactated Ringers) 1,000 mls @ 1,000 mls/hr IV BOLUS ONE Stop: 07/12/22 03:49 Last Infusion: 07/12/22 04:00 Dose: 0 mls/hr Documented By: Admin: 07/12/22 02:57 Dose: 1,000 mls/hr Documented By: VALENTINO Ketorolac Tromethamine (Ketorolac 30 Mg/Ml Vial) 30 mg IV NOW ONE Stop: 07/11/22 21:53 Last Admin: 07/11/22 22:00 Dose: 30 mg Documented By: MANUELITO Vital Signs Vital signs: Vital Signs - 8 hr 07/12/22 00:15 07/12/22 00:15 07/12/22 00:30 Temperature Pulse Rate 84 Respiratory Rate 18 Blood Pressure 85/50 L 85/50 L Pulse Oximetry 94 07/12/22 00:30 07/12/22 00:45 07/12/22 00:45 Temperature Pulse Rate 78 82 Respiratory Rate 19 19 Blood Pressure 80/53 L Pulse Oximetry 95 94 07/12/22 01:00 07/12/22 01:00 07/12/22 01:01 Temperature Pulse Rate 78 79 Respiratory Rate 18 16 Blood Pressure 78/53 L Pulse Oximetry 94 96 07/12/22 01:01 07/12/22 01:15 07/12/22 01:15 Temperature Pulse Rate 78 Respiratory Rate 18 Blood Pressure 89/55 L 93/55 L Pulse Oximetry 95 07/12/22 01:30 07/12/22 01:30 07/12/22 01:45 Temperature Pulse Rate 71 71 Respiratory Rate 16 19 Blood Pressure 85/50 L Pulse Oximetry 96 97 07/12/22 01:45 07/12/22 02:00 07/12/22 02:00 Temperature Pulse Rate 71 Respiratory Rate 19 Blood Pressure 84/51 L 94/53 L Pulse Oximetry 97 07/12/22 02:15 07/12/22 02:15 07/12/22 02:41 Temperature 97.7 F Pulse Rate 69 74 Respiratory Rate 17 Blood Pressure 92/53 L Pulse Oximetry 97 99 07/12/22 02:46 07/12/22 02:50 07/12/22 02:50 Temperature Pulse Rate 69 69 Respiratory Rate 18 20 Blood Pressure 82/50 L Pulse Oximetry 100 100 07/12/22 03:00 07/12/22 03:00 07/12/22 03:15 Temperature Pulse Rate 68 67 Respiratory Rate 18 17 Blood Pressure 81/53 L Pulse Oximetry 100 100 07/12/22 03:16 07/12/22 03:16 07/12/22 03:30 Temperature Pulse Rate 69 Respiratory Rate 17 Blood Pressure 83/52 L 86/50 L Pulse Oximetry 100 07/12/22 03:30 07/12/22 03:45 07/12/22 03:45 Temperature Pulse Rate 64 67 Respiratory Rate 17 14 Blood Pressure 87/52 L Pulse Oximetry 100 98 07/12/22 04:00 07/12/22 04:00 07/12/22 04:15 Temperature Pulse Rate 64 Respiratory Rate 18 Blood Pressure 94/54 L 95/56 L Pulse Oximetry 97 07/12/22 04:15 07/12/22 04:30 07/12/22 04:30 Temperature Pulse Rate 65 65 Respiratory Rate 18 18 Blood Pressure 88/54 L Pulse Oximetry 98 97 07/12/22 04:45 07/12/22 04:45 07/12/22 05:00 Temperature Pulse Rate 68 Respiratory Rate 20 Blood Pressure 95/58 L 109/75 Pulse Oximetry 97 07/12/22 05:00 07/12/22 05:15 07/12/22 05:15 Temperature 97.6 F Pulse Rate 80 77 Respiratory Rate 23 27 H Blood Pressure 110/70 Pulse Oximetry 98 96 07/12/22 05:30 07/12/22 05:30 07/12/22 05:45 Temperature Pulse Rate 86 Respiratory Rate 23 Blood Pressure 113/71 121/73 Pulse Oximetry 96 07/12/22 05:45 07/12/22 06:00 07/12/22 06:00 Temperature Pulse Rate 98 H 86 Respiratory Rate 31 H 19 Blood Pressure 122/71 Pulse Oximetry 97 97 07/12/22 06:15 07/12/22 06:15 07/12/22 06:30 Temperature Pulse Rate 94 H 93 H Respiratory Rate 28 H Blood Pressure 125/80 Pulse Oximetry 95 07/12/22 07:00 07/12/22 06:30 07/12/22 07:20 Temperature 98.9 F Pulse Rate 97 H 90 Respiratory Rate Blood Pressure 131/67 Pulse Oximetry 07/12/22 07:30 07/12/22 07:30 Temperature Pulse Rate 93 H Respiratory Rate 19 Blood Pressure 130/65 Pulse Oximetry Medical Decision Making <Baljit Chand, DO - Last Filed: 07/12/22 18:11> Medical Records Medical records reviewed: Yes I reviewed the patient's medical records. Lab Data Lab results reviewed: Yes I reviewed the patient's lab results. 07/12/22 07:00 07/12/22 07:00 Labs: Lab Results 07/11/22 07/11/22 07/11/22 Range/Units 20:15 20:15 20:30 WBC 10.1 (4.5-11.0) X10^3/uL RBC 4.69 (4.5-5.9) X10^6/uL Hgb 14.1 (13.5-17.5) g/dL Hct 41.7 (41-53) % MCV 89.0 (80-100) fL MCH 30.1 (26-34) PG MCHC 33.8 (30-36) % RDW 13.4 (11.6-14.8) % Plt Count 203 (150-400) X10^3/uL Neut % (Auto) 88.0 H (50-75) % Lymph % (Auto) 6.5 L (25-40) % [place] % (Auto) 5.0 (3-14) % Eos % (Auto) 0.2 L (2-4) % Baso % (Auto) 0.3 (0-2) % Neut # (Auto) 8900 H (7353-6716) /uL Lymph # (Auto) 700 L (9375-3469) /uL [place] # (Auto) 500 (0-900) /uL Eos # (Auto) 0 (0-450) /uL Baso # (Auto) 0 (0-100) /uL PT (10.1-12.7) SECONDS INR (0.9-1.3) APTT (26-36) SECONDS Sodium (137-145) mmol/L Potassium (3.4-5.1) mmol/L Chloride (98-107) mmol/L Carbon Dioxide (22-32) mmol/L BUN (9-20) mg/dL Creatinine (0.66-1.25) mg/dL Estimated GFR (>60) mL/min BUN/Creatinine Ratio (6-22) Glucose (70-100) mg/dL Lactate (0.7-2.1) mmol/L Calcium (8.4-10.2) mg/dL Total Bilirubin (0.2-1.3) mg/dL AST (17-59) IU/L ALT (<50) IU/L Alkaline Phosphatase (38-126) U/L Total Protein (6.3-8.2) g/dL Albumin (3.5-5.0) g/dL Globulin (1.7-4.1) g/dL Albumin/Globulin Ratio (1.0-2.8) Lipase (23-300) U/L Procalcitonin (<0.5) ng/mL Ur Bilirubin Confirm Negative (Negative) Urine RBC 1-5/hpf (0-5/HPF) Urine WBC 30-100/hpf H (0-5/HPF) Ur Renal Epithelial Cell 0-1/hpf (0-1/HPF) Urine Bacteria Moderate (10-30) H (None) Urine Mucus 1+ H (Negative) Ur Culture Indicated? Specimen cultured SARS-CoV-2 (PCR) (Negative) 07/11/22 07/11/22 07/11/22 Range/Units 20:30 20:30 20:30 WBC (4.5-11.0) X10^3/uL RBC (4.5-5.9) X10^6/uL Hgb (13.5-17.5) g/dL Hct (41-53) % MCV (80-100) fL MCH (26-34) PG MCHC (30-36) % RDW (11.6-14.8) % Plt Count (150-400) X10^3/uL Neut % (Auto) (50-75) % Lymph % (Auto) (25-40) % [place] % (Auto) (3-14) % Eos % (Auto) (2-4) % Baso % (Auto) (0-2) % Neut # (Auto) (7805-4202) /uL Lymph # (Auto) (6224-4848) /uL [place] # (Auto) (0-900) /uL Eos # (Auto) (0-450) /uL Baso # (Auto) (0-100) /uL PT 13.4 H (10.1-12.7) SECONDS INR 1.2 (0.9-1.3) APTT 27 (26-36) SECONDS Sodium 135 L (137-145) mmol/L Potassium 4.0 (3.4-5.1) mmol/L Chloride 97 L (98-107) mmol/L Carbon Dioxide 25 (22-32) mmol/L BUN 17 (9-20) mg/dL Creatinine 1.51 H (0.66-1.25) mg/dL Estimated GFR 54 L (>60) mL/min BUN/Creatinine Ratio 11.3 (6-22) Glucose 130 H (70-100) mg/dL Lactate 4.2 H* (0.7-2.1) mmol/L Calcium 9.5 (8.4-10.2) mg/dL Total Bilirubin 1.9 H (0.2-1.3) mg/dL AST 28 (17-59) IU/L ALT 42 (<50) IU/L Alkaline Phosphatase 105 (38-126) U/L Total Protein 8.4 H (6.3-8.2) g/dL Albumin 4.7 (3.5-5.0) g/dL Globulin 3.7 (1.7-4.1) g/dL Albumin/Globulin Ratio 1.3 (1.0-2.8) Lipase 96 (23-300) U/L Procalcitonin 0.72 H (<0.5) ng/mL Ur Bilirubin Confirm (Negative) Urine RBC (0-5/HPF) Urine WBC (0-5/HPF) Ur Renal Epithelial Cell (0-1/HPF) Urine Bacteria (None) Urine Mucus (Negative) Ur Culture Indicated? SARS-CoV-2 (PCR) (Negative) 07/11/22 07/11/22 07/12/22 Range/Units 22:55 23:06 07:00 WBC 11.6 H (4.5-11.0) X10^3/uL RBC 3.58 L (4.5-5.9) X10^6/uL Hgb 10.8 L (13.5-17.5) g/dL Hct 31.9 L (41-53) % MCV 89.1 (80-100) fL MCH 30.2 (26-34) PG MCHC 33.9 (30-36) % RDW 13.4 (11.6-14.8) % Plt Count 148 L (150-400) X10^3/uL Neut % (Auto) 84.2 H (50-75) % Lymph % (Auto) 4.6 L (25-40) % [place] % (Auto) 10.6 (3-14) % Eos % (Auto) 0.3 L (2-4) % Baso % (Auto) 0.3 (0-2) % Neut # (Auto) 9800 H (2479-2905) /uL Lymph # (Auto) 500 L (9815-2122) /uL [place] # (Auto) 1200 H (0-900) /uL Eos # (Auto) 0 (0-450) /uL Baso # (Auto) 0 (0-100) /uL PT (10.1-12.7) SECONDS INR (0.9-1.3) APTT (26-36) SECONDS Sodium (137-145) mmol/L Potassium (3.4-5.1) mmol/L Chloride (98-107) mmol/L Carbon Dioxide (22-32) mmol/L BUN (9-20) mg/dL Creatinine (0.66-1.25) mg/dL Estimated GFR (>60) mL/min BUN/Creatinine Ratio (6-22) Glucose (70-100) mg/dL Lactate 1.4 (0.7-2.1) mmol/L Calcium (8.4-10.2) mg/dL Total Bilirubin (0.2-1.3) mg/dL AST (17-59) IU/L ALT (<50) IU/L Alkaline Phosphatase (38-126) U/L Total Protein (6.3-8.2) g/dL Albumin (3.5-5.0) g/dL Globulin (1.7-4.1) g/dL Albumin/Globulin Ratio (1.0-2.8) Lipase (23-300) U/L Procalcitonin (<0.5) ng/mL Ur Bilirubin Confirm (Negative) Urine RBC (0-5/HPF) Urine WBC (0-5/HPF) Ur Renal Epithelial Cell (0-1/HPF) Urine Bacteria (None) Urine Mucus (Negative) Ur Culture Indicated? SARS-CoV-2 (PCR) Negative (Negative) 07/12/22 07/12/22 Range/Units 07:00 07:00 WBC (4.5-11.0) X10^3/uL RBC (4.5-5.9) X10^6/uL Hgb (13.5-17.5) g/dL Hct (41-53) % MCV (80-100) fL MCH (26-34) PG MCHC (30-36) % RDW (11.6-14.8) % Plt Count (150-400) X10^3/uL Neut % (Auto) (50-75) % Lymph % (Auto) (25-40) % [place] % (Auto) (3-14) % Eos % (Auto) (2-4) % Baso % (Auto) (0-2) % Neut # (Auto) (0186-5124) /uL Lymph # (Auto) (5177-8149) /uL [place] # (Auto) (0-900) /uL Eos # (Auto) (0-450) /uL Baso # (Auto) (0-100) /uL PT (10.1-12.7) SECONDS INR (0.9-1.3) APTT (26-36) SECONDS Sodium 134 L (137-145) mmol/L Potassium 4.3 (3.4-5.1) mmol/L Chloride 104 (98-107) mmol/L Carbon Dioxide 22 (22-32) mmol/L BUN 20 (9-20) mg/dL Creatinine 1.24 (0.66-1.25) mg/dL Estimated GFR > 60 (>60) mL/min BUN/Creatinine Ratio 16.1 (6-22) Glucose 155 H (70-100) mg/dL Lactate 2.6 H (0.7-2.1) mmol/L Calcium 7.4 L (8.4-10.2) mg/dL Total Bilirubin (0.2-1.3) mg/dL AST (17-59) IU/L ALT (<50) IU/L Alkaline Phosphatase (38-126) U/L Total Protein (6.3-8.2) g/dL Albumin (3.5-5.0) g/dL Globulin (1.7-4.1) g/dL Albumin/Globulin Ratio (1.0-2.8) Lipase (23-300) U/L Procalcitonin 15.8 H (<0.5) ng/mL Ur Bilirubin Confirm (Negative) Urine RBC (0-5/HPF) Urine WBC (0-5/HPF) Ur Renal Epithelial Cell (0-1/HPF) Urine Bacteria (None) Urine Mucus (Negative) Ur Culture Indicated? SARS-CoV-2 (PCR) (Negative) Urine Dip Bedside Urine Glucose Negative Bedside Urine Bilirubin + 1 Bedside Urine Ketone +/- 5 Urine Specific [place] 1.015 Bedside Urine Occult Blood +++ Bedside Urine pH 6 Bedside Urine Protein ++ 100 Bedside Urine Urobilinogen - Negative Bedside Urine Nitrite - Negative Bedside Urine Leukocytes ++ 125 Esterase Point of care testing: Urine Dip Bedside Urine Glucose Negative Bedside Urine Bilirubin + 1 Bedside Urine Ketone +/- 5 Urine Specific [place] 1.015 Bedside Urine Occult Blood +++ Bedside Urine pH 6 Bedside Urine Protein ++ 100 Bedside Urine Urobilinogen - Negative Bedside Urine Nitrite - Negative Bedside Urine Leukocytes ++ 125 Esterase Imaging Data Abdominal x-ray: Radiologist's Impression: PROCEDURE:? XR ACUTE ABDOMEN SERIES ? INDICATIONS:? suspected sepsis ? TECHNIQUE:? One view chest and two views of the abdomen were acquired.? ? COMPARISON:? [facility], CT, CT KIDNEY URETER BLADDER (KUB), 06/15/2022, 11:51.? [facility], CR, XR [facility], 07/02/2022, 12:50. ? FINDINGS:? ? Surgical changes and devices:? A left ureteral stent appears similar in position.? ? Chest:? There are low lung volumes with a few linear opacities medially in the lung bases likely representing atelectasis.? Heart size is normal.? No pleural effusions.? No pneumoperitoneum.? ? Abdomen:? There are few scattered small bowel air-fluid levels without abnormal gaseous distention of bowel loops.? A few clustered densities projecting over the inferior pole of the left kidney suggestive of renal stones are redemonstrated. ? Bones:? No suspicious bony lesions.? ? IMPRESSION:? ? 1. Nonspecific bowel gas pattern with a few scattered air-fluid levels within nondilated small bowel loops.? The differential includes a gastroenteritis, ileus, or developing obstruction. ? 2. Small clustered densities suggestive of left renal stones redemonstrated.? ECG Data Attestation: I personally reviewed and interpreted this ECG as follows: Interpretation: Sinus tachycardia Ventricular rate 139 Normal axis Normal QRS Normal QTC No ST T wave changes MDM Narrative Medical decision making narrative: Patient did arrive with symptoms that are consistent with rigors and chills. Was tachycardic. Was not febrile upon arrival but did spike a fever here in the ER. Was given Tylenol and Toradol for this. His fever did improve. Patient's lactate was elevated. He was given fluids which improved lactate. An elevated procalcitonin. Review of his past medical records specifically the urine c ulture from a couple days ago does show Enterococcus. He was initially given 2 g of Rocephin however the review of the sensitivities from the Enterococcus Zosyn was added to his antibiotic regimen. Blood cultures were obtained. Heart rate improved to the 70s. Patient has had some ?soft? blood pressures and occasionally had a mean arterial pressure less than 65 however every re- evaluation he states he is feeling much better than when he came in. He was given 30 cc/kilogram of fluid but has only urinated 1 time. Patient's local urologist is not on-call this evening but his partner will be on-call in the morning. My current urologic consultation is the [facility]. I feel that most likely his symptoms are related to the stent and urinary tract infection. The plan will be is to keep him here in the emergency department this evening and call his primary urologist office in the morning. I felt that this is best for him to avoid a transfer to [place] where he most likely would not even be accepted/make it to see at all until morning anyway. I will continue to monitor his blood pressure. If we need to put in a central line in had pressors we will do so however clinically he looks much better and feels better with a improvement of his lactate to normal. I am currently weighing heavily on his clinical presentation. Patient is aware of the potential need for blood pressure medications and a central line and he agrees that he would like to try to avoid this if possible. 0315: After approximately 4 L of fluid the patient's heart rate has improved even further in his now in the 60s to 70s. His mentation is normal. Has had mean arterial pressures that have ranged from 62- >70. He urinated 75 cc dark colored urine. A bladder scan shows less than 50 cc residual volume. I feel that the patient has done need fluid resuscitated. He is scheduled to receive another dose of Zosyn. Will administer 1 L of the LR. Still monitoring his blood pressure closely. If he persistently is below a map of [address] a central line and start pressors. Clinically he still continues to improve and states he feels better than arrival. After more fluid patient's blood pressure did improve in consistently had a mean arterial pressure greater than 65. He continues to improve clinically. His heart rate continues to be less than 100. Repeat labs this morning continues to show no leukocytosis. His renal function has improved however his lactate has increased to 2.4. I did discuss the case with Dr. Curiel who is on-call for Urology who recommended that we contact Dr. Kasper who was the initial operative provider when the office opens later today. I did discuss the case with Dr. Adair hospitalist on-call who will admit for further evaluation and treatment. Care turned over to Dr. Sargent to continue to observe and disposition. <Rosario Sargent, DO - Last Filed: 07/12/22 19:31> Lab Data Labs: Lab Results 07/11/22 07/11/22 07/11/22 Range/Units 20:15 20:15 20:30 WBC 10.1 (4.5-11.0) X10^3/uL RBC 4.69 (4.5-5.9) X10^6/uL Hgb 14.1 (13.5-17.5) g/dL Hct 41.7 (41-53) % MCV 89.0 (80-100) fL MCH 30.1 (26-34) PG MCHC 33.8 (30-36) % RDW 13.4 (11.6-14.8) % Plt Count 203 (150-400) X10^3/uL Neut % (Auto) 88.0 H (50-75) % Lymph % (Auto) 6.5 L (25-40) % [place] % (Auto) 5.0 (3-14) % Eos % (Auto) 0.2 L (2-4) % Baso % (Auto) 0.3 (0-2) % Neut # (Auto) 8900 H (7145-7989) /uL Lymph # (Auto) 700 L (7809-8456) /uL [place] # (Auto) 500 (0-900) /uL Eos # (Auto) 0 (0-450) /uL Baso # (Auto) 0 (0-100) /uL PT (10.1-12.7) SECONDS INR (0.9-1.3) APTT (26-36) SECONDS Sodium (137-145) mmol/L Potassium (3.4-5.1) mmol/L Chloride (98-107) mmol/L Carbon Dioxide (22-32) mmol/L BUN (9-20) mg/dL Creatinine (0.66-1.25) mg/dL Estimated GFR (>60) mL/min BUN/Creatinine Ratio (6-22) Glucose (70-100) mg/dL Lactate (0.7-2.1) mmol/L Calcium (8.4-10.2) mg/dL Total Bilirubin (0.2-1.3) mg/dL AST (17-59) IU/L ALT (<50) IU/L Alkaline Phosphatase (38-126) U/L Total Protein (6.3-8.2) g/dL Albumin (3.5-5.0) g/dL Globulin (1.7-4.1) g/dL Albumin/Globulin Ratio (1.0-2.8) Lipase (23-300) U/L Procalcitonin (<0.5) ng/mL Ur Bilirubin Confirm Negative (Negative) Urine RBC 1-5/hpf (0-5/HPF) Urine WBC 30-100/hpf H (0-5/HPF) Ur Renal Epithelial Cell 0-1/hpf (0-1/HPF) Urine Bacteria Moderate (10-30) H (None) Urine Mucus 1+ H (Negative) Ur Culture Indicated? Specimen cultured SARS-CoV-2 (PCR) (Negative) 07/11/22 07/11/22 07/11/22 Range/Units 20:30 20:30 20:30 WBC (4.5-11.0) X10^3/uL RBC (4.5-5.9) X10^6/uL Hgb (13.5-17.5) g/dL Hct (41-53) % MCV (80-100) fL MCH (26-34) PG MCHC (30-36) % RDW (11.6-14.8) % Plt Count (150-400) X10^3/uL Neut % (Auto) (50-75) % Lymph % (Auto) (25-40) % [place] % (Auto) (3-14) % Eos % (Auto) (2-4) % Baso % (Auto) (0-2) % Neut # (Auto) (3364-3558) /uL Lymph # (Auto) (0650-6929) /uL [place] # (Auto) (0-900) /uL Eos # (Auto) (0-450) /uL Baso # (Auto) (0-100) /uL PT 13.4 H (10.1-12.7) SECONDS INR 1.2 (0.9-1.3) APTT 27 (26-36) SECONDS Sodium 135 L (137-145) mmol/L Potassium 4.0 (3.4-5.1) mmol/L Chloride 97 L (98-107) mmol/L Carbon Dioxide 25 (22-32) mmol/L BUN 17 (9-20) mg/dL Creatinine 1.51 H (0.66-1.25) mg/dL Estimated GFR 54 L (>60) mL/min BUN/Creatinine Ratio 11.3 (6-22) Glucose 130 H (70-100) mg/dL Lactate 4.2 H* (0.7-2.1) mmol/L Calcium 9.5 (8.4-10.2) mg/dL Total Bilirubin 1.9 H (0.2-1.3) mg/dL AST 28 (17-59) IU/L ALT 42 (<50) IU/L Alkaline Phosphatase 105 (38-126) U/L Total Protein 8.4 H (6.3-8.2) g/dL Albumin 4.7 (3.5-5.0) g/dL Globulin 3.7 (1.7-4.1) g/dL Albumin/Globulin Ratio 1.3 (1.0-2.8) Lipase 96 (23-300) U/L Procalcitonin 0.72 H (<0.5) ng/mL Ur Bilirubin Confirm (Negative) Urine RBC (0-5/HPF) Urine WBC (0-5/HPF) Ur Renal Epithelial Cell (0-1/HPF) Urine Bacteria (None) Urine Mucus (Negative) Ur Culture Indicated? SARS-CoV-2 (PCR) (Negative) 07/11/22 07/11/22 07/12/22 Range/Units 22:55 23:06 07:00 WBC 11.6 H (4.5-11.0) X10^3/uL RBC 3.58 L (4.5-5.9) X10^6/uL Hgb 10.8 L (13.5-17.5) g/dL Hct 31.9 L (41-53) % MCV 89.1 (80-100) fL MCH 30.2 (26-34) PG MCHC 33.9 (30-36) % RDW 13.4 (11.6-14.8) % Plt Count 148 L (150-400) X10^3/uL Neut % (Auto) 84.2 H (50-75) % Lymph % (Auto) 4.6 L (25-40) % [place] % (Auto) 10.6 (3-14) % Eos % (Auto) 0.3 L (2-4) % Baso % (Auto) 0.3 (0-2) % Neut # (Auto) 9800 H (9218-8735) /uL Lymph # (Auto) 500 L (0950-5849) /uL [place] # (Auto) 1200 H (0-900) /uL Eos # (Auto) 0 (0-450) /uL Baso # (Auto) 0 (0-100) /uL PT (10.1-12.7) SECONDS INR (0.9-1.3) APTT (26-36) SECONDS Sodium (137-145) mmol/L Potassium (3.4-5.1) mmol/L Chloride (98-107) mmol/L Carbon Dioxide (22-32) mmol/L BUN (9-20) mg/dL Creatinine (0.66-1.25) mg/dL Estimated GFR (>60) mL/min BUN/Creatinine Ratio (6-22) Glucose (70-100) mg/dL Lactate 1.4 (0.7-2.1) mmol/L Calcium (8.4-10.2) mg/dL Total Bilirubin (0.2-1.3) mg/dL AST (17-59) IU/L ALT (<50) IU/L Alkaline Phosphatase (38-126) U/L Total Protein (6.3-8.2) g/dL Albumin (3.5-5.0) g/dL Globulin (1.7-4.1) g/dL Albumin/Globulin Ratio (1.0-2.8) Lipase (23-300) U/L Procalcitonin (<0.5) ng/mL Ur Bilirubin Confirm (Negative) Urine RBC (0-5/HPF) Urine WBC (0-5/HPF) Ur Renal Epithelial Cell (0-1/HPF) Urine Bacteria (None) Urine Mucus (Negative) Ur Culture Indicated? SARS-CoV-2 (PCR) Negative (Negative) 07/12/22 07/12/22 Range/Units 07:00 07:00 WBC (4.5-11.0) X10^3/uL RBC (4.5-5.9) X10^6/uL Hgb (13.5-17.5) g/dL Hct (41-53) % MCV (80-100) fL MCH (26-34) PG MCHC (30-36) % RDW (11.6-14.8) % Plt Count (150-400) X10^3/uL Neut % (Auto) (50-75) % Lymph % (Auto) (25-40) % [place] % (Auto) (3-14) % Eos % (Auto) (2-4) % Baso % (Auto) (0-2) % Neut # (Auto) (4793-4499) /uL Lymph # (Auto) (1186-1904) /uL [place] # (Auto) (0-900) /uL Eos # (Auto) (0-450) /uL Baso # (Auto) (0-100) /uL PT (10.1-12.7) SECONDS INR (0.9-1.3) APTT (26-36) SECONDS Sodium 134 L (137-145) mmol/L Potassium 4.3 (3.4-5.1) mmol/L Chloride 104 (98-107) mmol/L Carbon Dioxide 22 (22-32) mmol/L BUN 20 (9-20) mg/dL Creatinine 1.24 (0.66-1.25) mg/dL Estimated GFR > 60 (>60) mL/min BUN/Creatinine Ratio 16.1 (6-22) Glucose 155 H (70-100) mg/dL Lactate 2.6 H (0.7-2.1) mmol/L Calcium 7.4 L (8.4-10.2) mg/dL Total Bilirubin (0.2-1.3) mg/dL AST (17-59) IU/L ALT (<50) IU/L Alkaline Phosphatase (38-126) U/L Total Protein (6.3-8.2) g/dL Albumin (3.5-5.0) g/dL Globulin (1.7-4.1) g/dL Albumin/Globulin Ratio (1.0-2.8) Lipase (23-300) U/L Procalcitonin 15.8 H (<0.5) ng/mL Ur Bilirubin Confirm (Negative) Urine RBC (0-5/HPF) Urine WBC (0-5/HPF) Ur Renal Epithelial Cell (0-1/HPF) Urine Bacteria (None) Urine Mucus (Negative) Ur Culture Indicated? SARS-CoV-2 (PCR) (Negative) Urine Dip Bedside Urine Glucose Negative Bedside Urine Bilirubin + 1 Bedside Urine Ketone +/- 5 Urine Specific [place] 1.015 Bedside Urine Occult Blood +++ Bedside Urine pH 6 Bedside Urine Protein ++ 100 Bedside Urine Urobilinogen - Negative Bedside Urine Nitrite - Negative Bedside Urine Leukocytes ++ 125 Esterase Point of care testing: Urine Dip Bedside Urine Glucose Negative Bedside Urine Bilirubin + 1 Bedside Urine Ketone +/- 5 Urine Specific [place] 1.015 Bedside Urine Occult Blood +++ Bedside Urine pH 6 Bedside Urine Protein ++ 100 Bedside Urine Urobilinogen - Negative Bedside Urine Nitrite - Negative Bedside Urine Leukocytes ++ 125 Esterase MDM Narrative Medical decision making narrative: Patient did arrive with symptoms that are consistent with rigors and chills. Was tachycardic. Was not febrile upon arrival but did spike a fever here in the ER. Was given Tylenol and Toradol for this. His fever did improve. Patient's lactate was elevated. He was given fluids which improved lactate. An elevated procalcitonin. Review of his past medical records specifically the urine culture from a couple days ago does show Enterococcus. He was initially given 2 g of Rocephin however the review of the sensitivities from the Enterococcus Zosyn was added to his antibiotic regimen. Blood cultures were obtained. Heart rate improved to the 70s. Patient has had some ?soft? blood pressures and occasionally had a mean arterial pressure less than 65 however every re- evaluation he states he is feeling much better than when he came in. He was given 30 cc/kilogram of fluid but has only urinated 1 time. Patient's local urologist is not on-call this evening but his partner will be on-call in the morning. My current urologic consultation is the [facility]. I feel that most likely his symptoms are related to the stent and urinary tract infection. The plan will be is to keep him here in the emergency department this evening and call his primary urologist office in the morning. I felt that this is best for him to avoid a transfer to [place] where he most likely would not even be accepted/make it to see at all until morning anyway. I will c ontmiguel to monitor his blood pressure. If we need to put in a central line in had pressors we will do so however clinically he looks much better and feels better with a improvement of his lactate to normal. I am currently weighing heavily on his clinical presentation. Patient is aware of the potential need for blood pressure medications and a central line and he agrees that he would like to try to avoid this if possible. 0315: After approximately 4 L of fluid the patient's heart rate has improved even further in his now in the 60s to 70s. His mentation is normal. Has had mean arterial pressures that have ranged from 62- >70. He urinated 75 cc dark colored urine. A bladder scan shows less than 50 cc residual volume. I feel that the patient has done need fluid resuscitated. He is scheduled to receive another dose of Zosyn. Will administer 1 L of the LR. Still monitoring his bl ood pressure closely. If he persistently is below a map of [address] central line and start pressors. Clinically he still continues to improve and states he feels better than arrival. After more fluid patient's blood pressure did improve in consistently had a mean arterial pressure greater than 65. He continues to improve clinically. His heart rate continues to be less than 100. Repeat labs this morning continues to show no leukocytosis. His renal function has improved however his lactate has increased to 2.4. I did discuss the case with Dr. Curiel who is on-call for Urology who recommended that we contact Dr. Kasper who was the initial operative provider when the office opens later today. I did discuss the case with Dr. Adair hospitalist on-call who will admit for further evaluation and treatment. Care turned over to Dr. Sargent to continue to observe and disposi tion. Patient signed out to me by Dr. Chand seen evaluated patient myself. Blood pressure and heart rate seems to have improved with IV fluids. Get he has been getting antibiotics. Has likely infected ureteral stent. I spoke with Dr. Kasper who agrees to consult and will likely take the stent out Dr. Perez updated on Dr. Kasper and continues to accept patient Critical Care Time <Baljit Chand, DO - Last Filed: 07/12/22 18:11> Critical Care Time Critical Care Time: Yes Total Critical Care Time: 35 Attestation: The high probability of a clinically significant, sudden or life threatening deterioration of the [cardiovascular, renal] system(s) required my full and direct attention, intervention and personal management. The aggregate critical care time was [35] minutes. This time is in addition to time spent performing reported procedures but includes the following: [x] Data Review and interpretation [x] Patient assessment and monitoring of vital signs [x] Documentation [x] Medication orders and management Discharge Plan Departure Patient Disposition: Admitted As Inpatient Clinical Impression: Sepsis Urinary tract infection Qualifiers: Urinary tract infection type: catheter-associated UTI Indwelling urinary catheter type: unspecified Encounter type: initial encounter Qualified Code(s): T83.511A - Infection and inflammatory reaction due to indwelling urethral catheter, initial encounter Admit Date/Time: 07/12/22 09:09 Admit Provider: Jimena Adair
[2022-07-11 20:33] LABS: Bacteria Urine Moderate (10-30); Ictotest Urine Negative (Negative); Mucus Urine 1+ (Negative); RBC Urine 1-5/HPF (0-5/HPF); Renal Epithelial Cells Urine 0-1/HPF (0-1/HPF); WBC Urine 30-100/HPF (0-5/HPF)
[2022-07-11 20:34] LABS: Culture Indicated Urine Specimen Cultured
[2022-07-11] MEDS: SODIUM CHLORIDE 0.9% 1,000 ML 1000 ML IV ×3 (20:39→22:40)
[2022-07-11 20:46] LABS: INR 1.2 (0.9-1.3); Prothrombin Time 13.4 SECONDS (10.1-12.7)
[2022-07-11 20:49] LABS: Add Manual Diff / Slide Review NO; Basophils Absolute Auto 0 /uL (0-100); Basophils Percent Auto 0.3 % (0-2); Eosinophils Absolute Auto 0 /uL (0-450); Eosinophils Percent Auto 0.2 % (2-4); Hematocrit 41.7 % (41-53); Hemoglobin 14.1 g/dL (13.5-17.5); Lymphocytes Absolute Auto 700 /uL (1100-4500); Lymphocytes Percent Auto 6.5 % (25-40); Mean Corpuscular HGB Conc 33.8 % (30-36); Mean Corpuscular Hemoglobin 30.1 PG (26-34); Monocytes Absolute Auto 500 /uL (0-900); Neutrophils Absolute Auto 8900 /uL (1500-7000); PTT Partial Thromboplastin Tim 27 SECONDS (26-36); Platelet Count 203 X10^3/uL (150-400); Red Blood Cell Count 4.69 X10^6/uL (4.5-5.9); Red Cell Distribution Width 13.4 % (11.6-14.8); White Blood Cell Count 10.1 X10^3/uL (4.5-11.0)
[2022-07-11 20:52] LABS: Alanine Aminotransferase 42 IU/L (<50); Albumin 4.7 g/dL (3.5-5.0); Albumin Globulin Ratio 1.3 (1.0-2.8); Alkaline Phosphatase 105 U/L (38-126); Aspartate Aminotransferase 28 IU/L (17-59); BUN Creatinine Ratio 11.3 (6-22); Bilirubin Total 1.9 mg/dL (0.2-1.3); Blood Urea Nitrogen 17 mg/dL (9-20); Calcium 9.5 mg/dL (8.4-10.2); Carbon Dioxide 25 mmol/L (22-32); Chloride 97 mmol/L (98-107); Estimated Glomerular Filt Rate 54 mL/min (>60); Globulin 3.7 g/dL (1.7-4.1); Glucose 130 mg/dL (70-100); HEMOLYSIS < 15 (0-50); Lipase 96 U/L (23-300); Sodium 135 mmol/L (137-145); Total Protein 8.4 g/dL (6.3-8.2)
[2022-07-11 20:59] LABS: Lactate (Lactic Acid) 4.2 mmol/L (0.7-2.1)
[2022-07-11] MEDS: cefTRIAXone 1,000 MG in SODIUM CHLORIDE 0.9% 100 ML 200 MG IV ×2 (21:01→22:36)
[2022-07-11 21:09] LABS: Procalcitonin 0.72 ng/mL (<0.5)
[2022-07-11] MEDS: ACETAMINOPHEN 325 MG TABLET 650 MG PO (21:15)
[2022-07-11] MEDS: KETOROLAC 30 MG/ML VIAL IV (22:00)
[2022-07-11] MEDS: PIPERACILLIN/TAZO 4.5 GM in SODIUM CHLORIDE 0.9% 100 ML IV (22:13)
[2022-07-11] MEDS: SODIUM CHLORIDE 0.9% 1,000 ML 125 ML IV (22:35)
[2022-07-11 22:36] LABS: Reflexed Lactate in 2 Hours Y
[2022-07-11 23:13] LABS: Lactate 2HR (Lactic Acid Rflx) 1.4 mmol/L (0.7-2.1)
[2022-07-11 23:33] LABS: COVID19 -Nasal RAPID Negative (Negative)
[2022-07-12] VITALS (54 sets, daily range): BP systolic 78–153; BP diastolic 50–80; PULSE 64–100; RESP 14–31; TEMP 36.4–39.6; O2SAT 92–100; BMI 29.8
[2022-07-12] MEDS: SODIUM CHLORIDE 0.9% 1,000 ML 150 ML IV ×3 (01:53→16:13)
[2022-07-12] MEDS: LACTATED RINGERS 1,000 ML 1000 ML IV (02:57)
[2022-07-12] MEDS: PIPERACILLIN/TAZO 4.5 GM in SODIUM CHLORIDE 0.9% 100 ML IV ×3 (03:02→18:30)
[2022-07-12 07:13] LABS: Add Manual Diff / Slide Review NO; Basophils Absolute Auto 0 /uL (0-100); Basophils Percent Auto 0.3 % (0-2); Eosinophils Absolute Auto 0 /uL (0-450); Eosinophils Percent Auto 0.3 % (2-4); Hematocrit 31.9 % (41-53); Hemoglobin 10.8 g/dL (13.5-17.5); Lymphocytes Absolute Auto 500 /uL (1100-4500); Lymphocytes Percent Auto 4.6 % (25-40); Mean Corpuscular HGB Conc 33.9 % (30-36); Mean Corpuscular Hemoglobin 30.2 PG (26-34); Mean Corpuscular Volume 89.1 fL (80-100); Monocytes Absolute Auto 1200 /uL (0-900); Monocytes Percent Auto 10.6 % (3-14); Neutrophils Absolute Auto 9800 /uL (1500-7000); Neutrophils Percent Auto 84.2 % (50-75); Platelet Count 148 X10^3/uL (150-400); Red Blood Cell Count 3.58 X10^6/uL (4.5-5.9); Red Cell Distribution Width 13.4 % (11.6-14.8); White Blood Cell Count 11.6 X10^3/uL (4.5-11.0)
[2022-07-12 07:17] LABS: BUN Creatinine Ratio 16.1 (6-22); Blood Urea Nitrogen 20 mg/dL (9-20); Calcium 7.4 mg/dL (8.4-10.2); Carbon Dioxide 22 mmol/L (22-32); Chloride 104 mmol/L (98-107); Estimated Glomerular Filt Rate > 60 mL/min (>60); Glucose 155 mg/dL (70-100); HEMOLYSIS < 15 (0-50); Potassium 4.3 mmol/L (3.4-5.1); Sodium 134 mmol/L (137-145)
[2022-07-12 07:18] LABS: Lactate (Lactic Acid) 2.6 mmol/L (0.7-2.1)
[2022-07-12 07:35] LABS: Procalcitonin 15.8 ng/mL (<0.5)
[2022-07-12] MEDS: ACETAMINOPHEN 325 MG TABLET 975 MG PO (08:08)
[2022-07-12 09:02] LABS: Reflexed Lactate in 2 Hours Y
[2022-07-12 09:46] LABS: Lactate 2HR (Lactic Acid Rflx) 1.2 mmol/L (0.7-2.1)
--- NOTE | 2022-07-12 13:23 | PC.NURSE ---
notified provider that patient temp is 100.1. pt refused tylenol suppository, placed a cold washcloth on his forehead. will continue to monitor
--- NOTE | 2022-07-12 15:42 | P.CONS_ITS ---
History of Present Illness Consult details Date Patient Seen: 07/12/22 Time Patient Seen: 02:00 Chief complaint: Shaking, Hot sepsis Reason for consult: Patient with retained ureteral stent and now findings of sepsis Requesting provider: Rosario Sargent Narrative: This 57-year-old male presented to the emergency department with complaint of rigors, fever, malaise, signs and symptoms consistent with sepsis. Patient has a history of left extracorporeal shockwave lithotripsy and was in the office Karthik appeared that he would passed most of his fragments but had a few remaining he was given some postural maneuvers to do to help bend or facilitate evacuating of these last fragments. We had planned to have the patient back tomorrow with a KUB and then remove his stent on Tuesday. Patient reports that he went home and participated in the posterior maneuvers and perhaps ?overdid it? and did get a number of fragments out right after this soon after that or sometime later he began to feel poorly had 3 episodes of rigors shaking chills fever and then proceeded to the emergency department last night he was in the emergency department by report. He received hydration, antibiotics and and realized some improvement. He is seen in the hospital bed and appears to have still some malaise and fatigue but states that he feels better. He did have a urine culture done on the 09 of July which has grown out Enterococcus. These results are available. His KUB or imaging was reviewed in it appears that he is passed most of the fragments that he needs to and so we will plan on stent removal tomorrow once this the ?dust? has settled somewhat more patient is in agreement with this Dr. Do was informed of our plan. Meds Home Medications and Allergies Home Medications Medication Instructions Recorded Confirmed Type atorvastatin 20 mg tablet 20 mg PO DAILY 06/22/22 07/12/22 History glimepiride 20 mg PO DAILY 06/22/22 07/12/22 History lisinopril 20 mg tablet 20 mg PO DAILY 06/22/22 07/12/22 History metformin 1,000 mg tablet 1,000 mg PO BID 06/22/22 07/12/22 History Allergies Allergy/AdvReac Type Severity Reaction Status Date / Time No Known Drug Allergies Allergy Verified 07/09/22 09:02 Review of Systems Review of Systems ROS: Yes All systems reviewed with the patient and are negative except as otherwise documented (And problem list) Exam Vital Signs (past 8 hours): - 07/12/22 08:08 07/12/22 08:00 07/12/22 08:49 Temperature 102.3 F H 101.2 F H Pulse Rate 89 Respiratory Rate 26 H Blood Pressure Pulse Oximetry Oxygen Flow Rate 07/12/22 08:30 07/12/22 08:32 07/12/22 08:32 Temperature Pulse Rate 89 97 H Respiratory Rate 26 H 20 Blood Pressure 122/62 Pulse Oximetry Oxygen Flow Rate 07/12/22 08:49 07/12/22 08:49 07/12/22 09:00 Temperature Pulse Rate 97 H Respiratory Rate 27 H Blood Pressure 101/58 L 114/59 L Pulse Oximetry Oxygen Flow Rate 07/12/22 09:00 07/12/22 09:15 07/12/22 09:15 Temperature Pulse Rate 94 H 92 H Respiratory Rate 23 22 Blood Pressure 108/58 L Pulse Oximetry Oxygen Flow Rate 07/12/22 09:30 07/12/22 09:30 07/12/22 10:09 Temperature 97.6 F Pulse Rate 88 87 Respiratory Rate 20 17 Blood Pressure 105/57 L 102/58 L Pulse Oximetry 95 Oxygen Flow Rate 0 07/12/22 12:00 07/12/22 15:36 Temperature 97.8 F 102.0 F H Pulse Rate 79 Respiratory Rate 17 Blood Pressure 114/67 Pulse Oximetry 97 Oxygen Flow Rate 0 Oxygen Delivery Method Room Air Oxygen Flow Rate 0 Narrative Exam Narrative: General: This is an awake, alert, oriented, fatigued and minimally distressed male resting in the hospital bed. Lungs: Clear Cardiovascular exam: Regular rate and rhythm somewhat fast Abdominal exam: Soft, minimally tender on the left otherwise no abnormality Objective Labs 07/12/22 07:00 07/12/22 07:00 Labs: Laboratory Results - last 24 hr 07/11/22 07/11/22 07/11/22 20:15 20:15 20:30 WBC 10.1 RBC 4.69 Hgb 14.1 Hct 41.7 MCV 89.0 MCH 30.1 MCHC 33.8 RDW 13.4 Plt Count 203 Neut % (Auto) 88.0 H Lymph % (Auto) 6.5 L [place] % (Auto) 5.0 Eos % (Auto) 0.2 L Baso % (Auto) 0.3 Neut # (Auto) 8900 H Lymph # (Auto) 700 L [place] # (Auto) 500 Eos # (Auto) 0 Baso # (Auto) 0 PT INR APTT Sodium Potassium Chloride Carbon Dioxide BUN Creatinine Estimated GFR BUN/Creatinine Ratio Glucose Lactate Calcium Total Bilirubin AST ALT Alkaline Phosphatase Total Protein Albumin Globulin Albumin/Globulin Ratio Lipase Procalcitonin Ur Bilirubin Confirm Negative Urine RBC 1-5/hpf Urine WBC 30-100/hpf H Ur Renal Epithelial Cell 0-1/hpf Urine Bacteria Moderate (10-30) H Urine Mucus 1+ H Ur Culture Indicated? Specimen cultured SARS-CoV-2 (PCR) 07/11/22 07/11/22 07/11/22 20:30 20:30 20:30 WBC RBC Hgb Hct MCV MCH MCHC RDW Plt Count Neut % (Auto) Lymph % (Auto) [place] % (Auto) Eos % (Auto) Baso % (Auto) Neut # (Auto) Lymph # (Auto) [place] # (Auto) Eos # (Auto) Baso # (Auto) PT 13.4 H INR 1.2 APTT 27 Sodium 135 L Potassium 4.0 Chloride 97 L Carbon Dioxide 25 BUN 17 Creatinine 1.51 H Estimated GFR 54 L BUN/Creatinine Ratio 11.3 Glucose 130 H Lactate 4.2 H* Calcium 9.5 Total Bilirubin 1.9 H AST 28 ALT 42 Alkaline Phosphatase 105 Total Protein 8.4 H Albumin 4.7 Globulin 3.7 Albumin/Globulin Ratio 1.3 Lipase 96 Procalcitonin 0.72 H Ur Bilirubin Confirm Urine RBC Urine WBC Ur Renal Epithelial Cell Urine Bacteria Urine Mucus Ur Culture Indicated? SARS-CoV-2 (PCR) 07/11/22 07/11/22 07/12/22 22:55 23:06 07:00 WBC 11.6 H RBC 3.58 L Hgb 10.8 L Hct 31.9 L MCV 89.1 MCH 30.2 MCHC 33.9 RDW 13.4 Plt Count 148 L Neut % (Auto) 84.2 H Lymph % (Auto) 4.6 L [place] % (Auto) 10.6 Eos % (Auto) 0.3 L Baso % (Auto) 0.3 Neut # (Auto) 9800 H Lymph # (Auto) 500 L [place] # (Auto) 1200 H Eos # (Auto) 0 Baso # (Auto) 0 PT INR APTT Sodium Potassium Chloride Carbon Dioxide BUN Creatinine Estimated GFR BUN/Creatinine Ratio Glucose Lactate 1.4 Calcium Total Bilirubin AST ALT Alkaline Phosphatase Total Protein Albumin Globulin Albumin/Globulin Ratio Lipase Procalcitonin Ur Bilirubin Confirm Urine RBC Urine WBC Ur Renal Epithelial Cell Urine Bacteria Urine Mucus Ur Culture Indicated? SARS-CoV-2 (PCR) Negative 07/12/22 07/12/22 07/12/22 07:00 07:00 09:10 WBC RBC Hgb Hct MCV MCH MCHC RDW Plt Count Neut % (Auto) Lymph % (Auto) [place] % (Auto) Eos % (Auto) Baso % (Auto) Neut # (Auto) Lymph # (Auto) [place] # (Auto) Eos # (Auto) Baso # (Auto) PT INR APTT Sodium 134 L Potassium 4.3 Chloride 104 Carbon Dioxide 22 BUN 20 Creatinine 1.24 Estimated GFR > 60 BUN/Creatinine Ratio 16.1 Glucose 155 H Lactate 2.6 H 1.2 Calcium 7.4 L Total Bilirubin AST ALT Alkaline Phosphatase Total Protein Albumin Globulin Albumin/Globulin Ratio Lipase Procalcitonin 15.8 H Ur Bilirubin Confirm Urine RBC Urine WBC Ur Renal Epithelial Cell Urine Bacteria Urine Mucus Ur Culture Indicated? SARS-CoV-2 (PCR) PFSH Medical History History of broken finger History of high blood pressure History of kidney stones Hx of diabetes mellitus Lower urinary tract symptoms Microscopic hematuria Retained ureteral stent Secondhand smoke exposure Family History Father CAD (coronary artery disease) Hyperlipidemia Hypertension Mother Diabetes mellitus Hyperlipidemia Hypertension Thyroid disorder Urinary tract infection Social History marital status: unmarried,single number of children: 0 household members: none Tobacco & Substance Use Smoking Status: Never smoker alcohol intake: former Diet and Exercise caffeine: Yes Type(s) of exercise: none Assessment & Plan Assessment and plan (1) Retained ureteral stent: Status: Acute (2) Urinary tract infection: Qualifiers: Urinary tract infection type: catheter-associated UTI Indwelling urinary catheter type: unspecified Encounter type: initial encounter Qualified Code(s): T83.511A - Infection and inflammatory reaction due to indwelling urethral catheter, initial encounter; N39.0 - Urinary tract infection, site not specified Status: Acute (3) History of kidney stones: Status: Acute Plan Assessment and plan: Patient with apparent sepsis perhaps from a urinary cause. It appears he is passed his fragments and we can remove his stent to eliminate of foreign body from his urinary tract. It appears he is on appropriate antibiotics would recommend these continue the patient had been made NPO and at this point he can certainly eat. We will be by around 10:00 a.m. tomorrow myself and my nurse to perform bedside flexible cystoscopy to remove the stent. We will also then look forward to the patient's improvement. Time Spent With Patient Time with patient: 30 to 49 minutes with 50% spent counseling/coordinating care
[2022-07-12] MEDS: ACETAMINOPHEN 325 MG TABLET 650 MG PO ×2 (15:47→22:12)
--- NOTE | 2022-07-12 16:44 | P.HP_ITS ---
History of Present Illness History of Present Illness Date Patient Seen: 07/12/22 Chief complaint: Shaking, Hot sepsis Narrative: Patient is a 57-year-old male who presented to the ER for evaluation of fevers had fast heart rate not feeling well.? His symptoms have been going on for appro ximately 48 hours.? He did have a left-sided ureteral stent that was placed a couple weeks ago.? He had an appointment on Tuesday (July 08) with his urologist to discuss potentially having the stent removed however the decision was made to keep it in a while longer because there was still some debris in his left kidney based on a x-ray.? Stated that after that appointment he started to feel poorly .? He did have a urine sample performed at that time.? He stated over the past 48 hours his symptoms have worsened.? He is still tolerating oral intake.? Is having fevers.? No chest pain.? No shortness of breath.? Is having some dysuria but this really has not changed since having the catheter in place.? He is not having any blood in his urine.? No change in bowel habits.? Is not currently on antibiotics. No nausea vomiting or diaphoresis. Able to move all extremities volitionally. No constipation or diarrhea. No numbness or tingling in any extremity. PFSH Medical History History of broken finger History of high blood pressure History of kidney stones Hx of diabetes mellitus Lower urinary tract symptoms Microscopic hematuria Retained ureteral stent Secondhand smoke exposure Family History Father CAD (coronary artery disease) Hyperlipidemia Hypertension Mother Diabetes mellitus Hyperlipidemia Hypertension Thyroid disorder Urinary tract infection Social History marital status: unmarried,single number of children: 0 household members: none Smoking Status: Never smoker alcohol intake: former caffeine: Yes Type(s) of exercise: none Meds Home Medications and Allergies Home Medications Medication Instructions Recorded Confirmed Type atorvastatin 20 mg tablet 20 mg PO DAILY 06/22/22 07/12/22 History glimepiride 20 mg PO DAILY 06/22/22 07/12/22 History lisinopril 20 mg tablet 20 mg PO DAILY 06/22/22 07/12/22 History metformin 1,000 mg tablet 1,000 mg PO BID 06/22/22 07/12/22 History Allergies Allergy/AdvReac Type Severity Reaction Status Date / Time No Known Drug Allergies Allergy Verified 07/09/22 09:02 Review of Systems Review of Systems Narrative: Fourteen system review was completed and pertinent findings in the history of chief complaint. Exam Vital Signs (past 8 hours): - 07/12/22 08:49 07/12/22 08:49 07/12/22 08:49 Temperature 101.2 F H Pulse Rate 97 H Respiratory Rate 27 H Blood Pressure 101/58 L Pulse Oximetry Oxygen Flow Rate 07/12/22 09:00 07/12/22 09:00 07/12/22 09:15 Temperature Pulse Rate 94 H 92 H Respiratory Rate 23 22 Blood Pressure 114/59 L Pulse Oximetry Oxygen Flow Rate 07/12/22 09:15 07/12/22 09:30 07/12/22 09:30 Temperature Pulse Rate 88 Respiratory Rate 20 Blood Pressure 108/58 L 105/57 L Pulse Oximetry Oxygen Flow Rate 07/12/22 10:09 07/12/22 12:00 07/12/22 15:36 Temperature 97.6 F 97.8 F 102.0 F H Pulse Rate 87 79 Respiratory Rate 17 17 Blood Pressure 102/58 L 114/67 Pulse Oximetry 95 97 Oxygen Flow Rate 0 0 07/12/22 16:00 Temperature 103.2 F H Pulse Rate 98 H Respiratory Rate 17 Blood Pressure 116/68 Pulse Oximetry 95 Oxygen Flow Rate 0 Oxygen Delivery Method Room Air Oxygen Flow Rate 0 Narrative Exam Narrative: Const General: cooperative and ill appearing. Not in any acute medical distress. Febrile. HEENT Head: normal to inspection and normocephalic, trachea is midline. Extraocular movements normal. Pupils equal react to light. Resp Effort & Inspection: normal respiratory effort Auscultation: clear to auscultation bilaterally Cardio Rate: tachycardia has settled somewhat and pulses 98 Rhythm: regular rhythm. Heart sounds S1 and S2 with no extra sounds or murmurs GI Inspection: normal to inspection Palpation: soft, No firm and No tender, bowel sounds normal. Skin General: no rashes or lesions noted Neuro General: patient alert, patient awake, patient oriented x3 and moves all extremities Cognition: normal cognition Speech: speech normal Extrem General: normal to inspection and capillary refill normal Psych Appearance: grossly normal and well kempt. No apparent acute mood change or depression. Objective Labs 07/12/22 07:00 07/12/22 07:00 Labs: Laboratory Results - last 24 hr 07/11/22 07/11/22 07/11/22 20:15 20:15 20:30 WBC 10.1 RBC 4.69 Hgb 14.1 Hct 41.7 MCV 89.0 MCH 30.1 MCHC 33.8 RDW 13.4 Plt Count 203 Neut % (Auto) 88.0 H Lymph % (Auto) 6.5 L [place] % (Auto) 5.0 Eos % (Auto) 0.2 L Baso % (Auto) 0.3 Neut # (Auto) 8900 H Lymph # (Auto) 700 L [place] # (Auto) 500 Eos # (Auto) 0 Baso # (Auto) 0 PT INR APTT Sodium Potassium Chloride Carbon Dioxide BUN Creatinine Estimated GFR BUN/Creatinine Ratio Glucose Lactate Calcium Total Bilirubin AST ALT Alkaline Phosphatase Total Protein Albumin Globulin Albumin/Globulin Ratio Lipase Procalcitonin Ur Bilirubin Confirm Negative Urine RBC 1-5/hpf Urine WBC 30-100/hpf H Ur Renal Epithelial Cell 0-1/hpf Urine Bacteria Moderate (10-30) H Urine Mucus 1+ H Ur Culture Indicated? Specimen cultured SARS-CoV-2 (PCR) 07/11/22 07/11/22 07/11/22 20:30 20:30 20:30 WBC RBC Hgb Hct MCV MCH MCHC RDW Plt Count Neut % (Auto) Lymph % (Auto) [place] % (Auto) Eos % (Auto) Baso % (Auto) Neut # (Auto) Lymph # (Auto) [place] # (Auto) Eos # (Auto) Baso # (Auto) PT 13.4 H INR 1.2 APTT 27 Sodium 135 L Potassium 4.0 Chloride 97 L Carbon Dioxide 25 BUN 17 Creatinine 1.51 H Estimated GFR 54 L BUN/Creatinine Ratio 11.3 Glucose 130 H Lactate 4.2 H* Calcium 9.5 Total Bilirubin 1.9 H AST 28 ALT 42 Alkaline Phosphatase 105 Total Protein 8.4 H Albumin 4.7 Globulin 3.7 Albumin/Globulin Ratio 1.3 Lipase 96 Procalcitonin 0.72 H Ur Bilirubin Confirm Urine RBC Urine WBC Ur Renal Epithelial Cell Urine Bacteria Urine Mucus Ur Culture Indicated? SARS-CoV-2 (PCR) 07/11/22 07/11/22 07/12/22 22:55 23:06 07:00 WBC 11.6 H RBC 3.58 L Hgb 10.8 L Hct 31.9 L MCV 89.1 MCH 30.2 MCHC 33.9 RDW 13.4 Plt Count 148 L Neut % (Auto) 84.2 H Lymph % (Auto) 4.6 L [place] % (Auto) 10.6 Eos % (Auto) 0.3 L Baso % (Auto) 0.3 Neut # (Auto) 9800 H Lymph # (Auto) 500 L [place] # (Auto) 1200 H Eos # (Auto) 0 Baso # (Auto) 0 PT INR APTT Sodium Potassium Chloride Carbon Dioxide BUN Creatinine Estimated GFR BUN/Creatinine Ratio Glucose Lactate 1.4 Calcium Total Bilirubin AST ALT Alkaline Phosphatase Total Protein Albumin Globulin Albumin/Globulin Ratio Lipase Procalcitonin Ur Bilirubin Confirm Urine RBC Urine WBC Ur Renal Epithelial Cell Urine Bacteria Urine Mucus Ur Culture Indicated? SARS-CoV-2 (PCR) Negative 07/12/22 07/12/22 07/12/22 07:00 07:00 09:10 WBC RBC Hgb Hct MCV MCH MCHC RDW Plt Count Neut % (Auto) Lymph % (Auto) [place] % (Auto) Eos % (Auto) Baso % (Auto) Neut # (Auto) Lymph # (Auto) [place] # (Auto) Eos # (Auto) Baso # (Auto) PT INR APTT Sodium 134 L Potassium 4.3 Chloride 104 Carbon Dioxide 22 BUN 20 Creatinine 1.24 Estimated GFR > 60 BUN/Creatinine Ratio 16.1 Glucose 155 H Lactate 2.6 H 1.2 Calcium 7.4 L Total Bilirubin AST ALT Alkaline Phosphatase Total Protein Albumin Globulin Albumin/Globulin Ratio Lipase Procalcitonin 15.8 H Ur Bilirubin Confirm Urine RBC Urine WBC Ur Renal Epithelial Cell Urine Bacteria Urine Mucus Ur Culture Indicated? SARS-CoV-2 (PCR) Assessment & Plan Assessment & Plan narrative: 1. Urinary tract infection. Outpatient culture positive for E coli with multiple drug sensitivity. Continue Zosyn. 2. Concern for sepsis. Blood cultures pending. Continue IV fluids at increased rate and continue Zosyn. 3. Urological stent in place. Urology has been consulted and plan is for removal tomorrow. 4. Type 2 diabetes. Continue patient's regular medication. 5. Hypertension. Maintain patient's regular medication, hold if systolic is less than 100. 6. Fever. Treat with acetaminophen and IV Ketoralac. 7. Headache. Treat with acetaminophen and IV ketorolac. Code status: Full code Surrogate decision maker: Sister named Angela Morales DVT prophylaxis: Enoxaparin 40 mg subQ daily PPI protection: Pantoprazole 40 mg daily COVID status: Negative testing on July 11, 2022 Expect patient to be hospitalized greater than 2 midnights due to severity of illness and need for treatment in hospital setting. I have utilized all available immediate resources to obtain, update, or review the patient's current medications. I have reviewed all EKG imaging, and [place] notes to include Cardiology, Oncology, PCP and all imaging and laboratory results. I confirmed that the patient's advanced care plan is present, Code status is documented and/or surrogate decision maker is listed in the patient's medical record. I have personally reviewed patient's chart notes from PCP, specialists, diagnostic imaging, and laboratory results. Quality VTE Deep Vein Thrombosis/Pulmonary Embolism Present on Admission: No
[2022-07-12] MEDS: KETOROLAC 30 MG/ML VIAL 15 MG IV ×2 (17:05→22:11)
[2022-07-12] MEDS: METFORMIN HCL 500 MG TABLET 1000 MG PO (21:03)
--- NOTE | 2022-07-12 23:22 | DI.RAD.S_ITS ---
PROCEDURE: XR CHEST 1V INDICATIONS: sob TECHNIQUE: One view of the chest was acquired. COMPARISON: Merged With [facility], CR, XR ACUTE ABDOMEN SERIES, 07/11/2022, 20:31. FINDINGS: Surgical changes and devices: None. Lungs and pleura: There are low lung volumes with increased pulmonary edema. No pleural effusions or pneumothorax. Mediastinum: Mediastinal contours appear unchanged. Heart size appears enlarged. Bones and chest wall: No suspicious bony lesions. Overlying soft tissues appear unremarkable. IMPRESSION: 1. Low lung volumes with increased pulmonary edema. Dictated by: Payam Rollins M.D. on 07/13/2022 at 1:59 Approved by: Payam Rollins M.D. on 07/13/2022 at 2:00
[2022-07-12 23:45] LABS: Hemoglobin 10.4 g/dL (13.5-17.5); Mean Corpuscular HGB Conc 34.7 % (30-36); Mean Corpuscular Hemoglobin 30.6 PG (26-34); Mean Corpuscular Volume 88.4 fL (80-100); Platelet Count 149 X10^3/uL (150-400); Red Blood Cell Count 3.39 X10^6/uL (4.5-5.9); Red Cell Distribution Width 13.6 % (11.6-14.8); White Blood Cell Count 8.3 X10^3/uL (4.5-11.0)
[2022-07-12 23:54] LABS: Lactate (Lactic Acid) 0.9 mmol/L (0.7-2.1)
[2022-07-12 23:55] LABS: BUN Creatinine Ratio 12.5 (6-22); Blood Urea Nitrogen 13 mg/dL (9-20); Calcium 7.5 mg/dL (8.4-10.2); Carbon Dioxide 20 mmol/L (22-32); Chloride 105 mmol/L (98-107); Estimated Glomerular Filt Rate > 60 mL/min (>60); Glucose 144 mg/dL (70-100); HEMOLYSIS < 15 (0-50); Potassium 3.3 mmol/L (3.4-5.1); Sodium 133 mmol/L (137-145)
[2022-07-13] VITALS (8 sets, daily range): BP systolic 102–188; BP diastolic 61–81; PULSE 69–103; RESP 17–18; TEMP 36.2–38.5; O2SAT 91–100
[2022-07-13] MEDS: VANCOMYCIN 2,000 MG/400 ML PIGGYBACK 200 MG IV (00:02)
[2022-07-13 00:04] LABS: NT-proBNP (BNP-Adult 18+) 1290 pg/mL (<125)
[2022-07-13] MEDS: PIPERACILLIN/TAZO 3.375 GM in SODIUM CHLORIDE 0.9% 100 ML IV ×3 (02:22→17:39)
[2022-07-13] MEDS: KETOROLAC 30 MG/ML VIAL 15 MG IV ×4 (05:48→23:27)
[2022-07-13 07:31] LABS: Add Manual Diff / Slide Review NO; Basophils Absolute Auto 0 /uL (0-100); Basophils Percent Auto 0.4 % (0-2); Eosinophils Absolute Auto 100 /uL (0-450); Eosinophils Percent Auto 0.8 % (2-4); Hematocrit 30.5 % (41-53); Hemoglobin 10.5 g/dL (13.5-17.5); Lymphocytes Absolute Auto 400 /uL (1100-4500); Lymphocytes Percent Auto 4.3 % (25-40); Mean Corpuscular HGB Conc 34.4 % (30-36); Mean Corpuscular Hemoglobin 30.5 PG (26-34); Mean Corpuscular Volume 88.5 fL (80-100); Monocytes Absolute Auto 1100 /uL (0-900); Monocytes Percent Auto 11.2 % (3-14); Neutrophils Absolute Auto 8300 /uL (1500-7000); Neutrophils Percent Auto 83.3 % (50-75); Platelet Count 150 X10^3/uL (150-400); Red Blood Cell Count 3.44 X10^6/uL (4.5-5.9); Red Cell Distribution Width 13.7 % (11.6-14.8)
[2022-07-13 07:49] LABS: Alanine Aminotransferase 30 IU/L (<50); Albumin 3.1 g/dL (3.5-5.0); Albumin Globulin Ratio 1.1 (1.0-2.8); Alkaline Phosphatase 73 U/L (38-126); Aspartate Aminotransferase 20 IU/L (17-59); BUN Creatinine Ratio 12.8 (6-22); Bilirubin Total 0.8 mg/dL (0.2-1.3); Bilirubin Unconjugated 0.6 mg/dL (0.0-1.1); Blood Urea Nitrogen 12 mg/dL (9-20); Calcium 7.7 mg/dL (8.4-10.2); Carbon Dioxide 22 mmol/L (22-32); Chloride 106 mmol/L (98-107); Estimated Glomerular Filt Rate > 60 mL/min (>60); Globulin 2.8 g/dL (1.7-4.1); Glucose 148 mg/dL (70-100); HEMOLYSIS < 15 (0-50); Potassium 3.6 mmol/L (3.4-5.1); Sodium 135 mmol/L (137-145); Total Protein 5.9 g/dL (6.3-8.2)
--- NOTE | 2022-07-13 07:49 | P.PN_ITS ---
Subjective Subjective Interval history: Patient had fevers up to 102F overnight. Stent removed early this AM by Dr. Kasper urology. Patient says he has a dry cough. Denies chills or rigors. Exam Vital Signs (past 8 hours): - 07/13/22 00:00 07/13/22 02:22 07/13/22 04:35 Temperature 99.4 F 98.3 F 98.4 F Pulse Rate 69 78 Respiratory Rate 18 18 Blood Pressure 102/61 111/70 Pulse Oximetry 97 100 Oxygen Flow Rate 6 2 Oxygen Delivery Method Room Air Oxygen Flow Rate 2 Narrative Exam Narrative: Const General: cooperative and ill appearing. Not in any acute medical distress. HEENT Head: normal to inspection and normocephalic, trachea is midline. Extraocular movements normal. Pupils equal react to light. Resp Effort & Inspection: normal respiratory effort Auscultation: clear to auscultation bilaterally Cardio Rate: tachycardia has settled somewhat and pulses 98 Rhythm: regular rhythm. Heart sounds S1 and S2 with no extra sounds or murmurs GI Inspection: normal to inspection Palpation: soft, No firm and No tender, bowel sounds normal. Skin General: no rashes or lesions noted Neuro General: patient alert, patient awake, patient oriented x3 and moves all extremities Cognition: normal cognition Speech: speech normal Extrem General: normal to inspection and capillary refill normal Psych Appearance: grossly normal and well kempt. No apparent acute mood change or depression. Objective Labs 07/13/22 07:09 07/13/22 07:09 Labs: Laboratory Results - last 24 hr 07/12/22 07/12/22 07/12/22 09:10 23:34 23:34 WBC 8.3 RBC 3.39 L Hgb 10.4 L Hct 30.0 L MCV 88.4 MCH 30.6 MCHC 34.7 RDW 13.6 Plt Count 149 L Neut % (Auto) Lymph % (Auto) [place] % (Auto) Eos % (Auto) Baso % (Auto) Neut # (Auto) Lymph # (Auto) [place] # (Auto) Eos # (Auto) Baso # (Auto) Sodium 133 L Potassium 3.3 L Chloride 105 Carbon Dioxide 20 L BUN 13 Creatinine 1.04 Estimated GFR > 60 BUN/Creatinine Ratio 12.5 Glucose 144 H Lactate 1.2 Calcium 7.5 L NT-Pro-B Natriuret Pep 07/12/22 07/12/22 07/13/22 23:34 23:34 07:09 WBC 10.0 RBC 3.44 L Hgb 10.5 L Hct 30.5 L MCV 88.5 MCH 30.5 MCHC 34.4 RDW 13.7 Plt Count 150 Neut % (Auto) 83.3 H Lymph % (Auto) 4.3 L [place] % (Auto) 11.2 Eos % (Auto) 0.8 L Baso % (Auto) 0.4 Neut # (Auto) 8300 H Lymph # (Auto) 400 L [place] # (Auto) 1100 H Eos # (Auto) 100 Baso # (Auto) 0 Sodium Potassium Chloride Carbon Dioxide BUN Creatinine Estimated GFR BUN/Creatinine Ratio Glucose Lactate 0.9 Calcium NT-Pro-B Natriuret Pep 1290 H PFSH Medical History History of broken finger History of high blood pressure History of kidney stones Hx of diabetes mellitus Lower urinary tract symptoms Microscopic hematuria Retained ureteral stent Secondhand smoke exposure Family History Father CAD (coronary artery disease) Hyperlipidemia Hypertension Mother Diabetes mellitus Hyperlipidemia Hypertension Thyroid disorder Urinary tract infection Social History marital status: unmarried,single number of children: 0 household members: none Smoking Status: Never smoker alcohol intake: former caffeine: Yes Type(s) of exercise: none Assessment & Plan Assessment & Plan narrative: 1. Urinary tract infection. Outpatient culture positive for Enterococcus with sensitivity to vanc, cipro. Continue vanco. 2. Concern for sepsis with new cough. Blood cultures pending. Continue zosyn as patient still febrile depsite antibiotics. Check CXR and resp PCR due to cough. 3. Urological stent s/p removal on 07/13. Stent taken out by Dr. Kasper urology. 4. Type 2 diabetes. Continue patient's regular medication. 5. Hypertension. Maintain patient's regular medication, hold if systolic is less than 100. 6. Fever. Treat with acetaminophen and IV Ketoralac. 7. Headache. Treat with acetaminophen and IV ketorolac. 8. Pulm edema. CXR on 07/12 noted pulm edema. Give 40 IV lasix. Code status: Full code Surrogate decision maker: Sister named Angela Morales DVT prophylaxis: Enoxaparin 40 mg subQ daily PPI protection: Pantoprazole 40 mg daily COVID status: Negative testing on July 11, 2022 Dispo: Pending improvement in fevers. 1-2 days. Quality VTE Deep Vein Thrombosis/Pulmonary Embolism Present on Admission: No
[2022-07-13 08:05] LABS: Procalcitonin 8.95 ng/mL (<0.5)
[2022-07-13] MEDS: METFORMIN HCL 500 MG TABLET 1000 MG PO ×2 (09:18→21:16)
[2022-07-13] MEDS: ATORVASTATIN 20 MG TABLET PO (09:18)
--- NOTE | 2022-07-13 10:38 | PM.PROC.1 ---
Procedures Date/Time Date of procedure: 07/13/22 Time of procedure: 01:30 General Procedure description: Informed consent given: Yes Consent signed: Yes Procedure Notes: Flexible cystoscopy with left stent removal note: Procedure performed: Flexible cystoscopy left ureteral stent removal Surgeon: Eddi Kasper MD Indications: This 57-year-old male had undergone extracorporeal shockwave lithotripsy and had a stent placed at that time. He now was admitted to the hospital with sepsis possibly from urinary etiology possibly from another. It appears he is passed all the fragments and to remove the foreign body from his urinary tract we will remove the stent today. Anesthetic: 2% viscous lidocaine per urethra. Preoperative diagnosis: Retained left ureteral stent, history of left renal calculus after extracorporeal shockwave lithotripsy, urinary tract infection, sepsis Postoperative diagnosis: Same retained stent removed in its entirety Complications: None Procedure in detail: Patient is in his hospital bed. Informed consent was obtained and the patient identified appropriately. He was then prepped with a sterilizing prepped and draped in sterile fashion for flexible cystoscopy. 2% viscous lidocaine was instilled in the urethra and time allowed for the block set up. Flexible cystoscope was inserted in flexible cystoscopy performed including a retroflex maneuver. The stent was identified coming out of the left ureteral orifice grasping forceps was inserted and the stent was grasped and the stent grasping forceps and scope were brought out together. The stent was brought out in its entirety without complication. The patient tolerated the procedure well. Disposition: Patient will continue under the care of the hospitalist for his sepsis. Findings: Urethral meatus is normal. The urethra is normal along its length the sphincter as well coapted there is normal mucosa throughout prostate exhibits moderate obstructive character. Within the bladder you right ureteral orifice in normal position with clear efflux. The left ureteral orifice had the stent coming out of it with small amount of bolus edema. There were no other abnormalities within the bladder. The stent was removed in its entirety and was without encrustation. Impression: Left renal calculus now well treated stents removed. Patient does have Enterococcus in appears to be on appropriate antibiotics. Plan: Patient will remain under the care of the hospitalist for his sepsis and Infectious concerns. We will await how he does and then establish follow-up appropriately. 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 We will see how things go and if they go well we could potentially see him in December when he returns. Complications: none
[2022-07-13] MEDS: FUROSEMIDE 40 MG/4 ML VIAL IV (11:27)
[2022-07-13] MEDS: ACETAMINOPHEN 325 MG TABLET 650 MG PO ×2 (11:39→21:17)
[2022-07-13] MEDS: VANCOMYCIN 1,500 MG/300 ML PIGGYBACK 150 MG IV ×2 (11:45→23:27)
--- NOTE | 2022-07-13 14:51 | CM.DANOTE ---
Patient is a 57 yo male who was admitted on 07/12/22 for Shaking/Hot. Pt has [employer] for insurance and his PCP is Liz Tony. EMR was reviewed. Per MD, pt with recent ureteral stent placement with urologist and admitted now for UTI and Sepsis. Per Rn, pt now on room air and fevers reduced. Urologist Consult, completed stent removal bedside today around 1000 with plan of outpt follow up. SW met briefly bedside with pt and explained role and he confirms he is independent at baseline and has work part of the year in [place] and plans to head up there soon for work and has local supportive Aunt. Pt denies any hx of HH or SNF and does not anticipate any needs at d/c and preference is home when stable. Plan: SW to follow for likely d/c home on orals tomorrow if medically stable and outpt f/u and any further identified discharge planning needs. KARINA Chase Discharge Planning/Care Management CM Discharge Assessment Start: 07/13/22 14:49 Freq: Status: Active Protocol: Document 07/13/22 14:49 BF (Rec: 07/13/22 14:51 BF [id number]) Discharge Planning Assessment Assigned Machine Molder KARINA Arango DPOA/Assigned Designee Name informally aunt Advance Directives? Yes Advance Directives on File No: In Aunt's safety deposit box History Provided By Patient,Medical Record Has Patient been admitted in last 30 No days? Prior Living Arrangements House Household Members none Type of transporation used prior to Drives own vehicle admit Independent with ADL's Yes Is patient alert and oriented? Yes Caregiver for Another No Barriers to Discharge No Discharge Plan Home Transportation Arrangement Likely family to transport Referrals Initiated None needed Whiteboard Updated in Patient Room with Yes name and ext. # of Machine Molder Review Status In Process Please Provide Date Initial DC 07/13/22 Assessment Was Performed Next Review Type Continued Stay Review
--- NOTE | 2022-07-13 16:20 | DI.RAD.S_ITS ---
PROCEDURE: XR CHEST 1V INDICATIONS: fevers, cough TECHNIQUE: One view of the chest was acquired. COMPARISON: [facility], CR, XR CHEST 1V, 07/12/2022, 23:33. FINDINGS: Surgical changes and devices: None. Lungs and pleura: Trace left pleural effusion. Patchy opacity in left lung base. Mediastinum: Mediastinal contours appear normal. Heart size is normal. Bones and chest wall: No suspicious bony lesions. Overlying soft tissues appear unremarkable. IMPRESSION: Left basilar atelectasis versus pneumonia. Dictated by: Cherie Mckenna MD, PhD on 07/13/2022 at 16:36 Approved by: Cherie Mckenna MD, PhD on 07/13/2022 at 16:37
[2022-07-14 03:31] VITALS: BP 123/73; PULSE 75; RESP 19; TEMP 36.5; O2SAT 92
[2022-07-14] MEDS: PIPERACILLIN/TAZO 3.375 GM in SODIUM CHLORIDE 0.9% 100 ML IV (05:14)
[2022-07-14] MEDS: KETOROLAC 30 MG/ML VIAL 15 MG IV (05:15)
[2022-07-14 06:54] LABS: Add Manual Diff / Slide Review NO; Basophils Absolute Auto 0 /uL (0-100); Basophils Percent Auto 0.3 % (0-2); Eosinophils Absolute Auto 200 /uL (0-450); Eosinophils Percent Auto 1.9 % (2-4); Hematocrit 29.4 % (41-53); Hemoglobin 10.1 g/dL (13.5-17.5); Lymphocytes Absolute Auto 600 /uL (1100-4500); Lymphocytes Percent Auto 6.6 % (25-40); Mean Corpuscular HGB Conc 34.3 % (30-36); Mean Corpuscular Hemoglobin 30.1 PG (26-34); Mean Corpuscular Volume 87.8 fL (80-100); Monocytes Absolute Auto 800 /uL (0-900); Neutrophils Absolute Auto 6900 /uL (1500-7000); Neutrophils Percent Auto 81.2 % (50-75); Platelet Count 157 X10^3/uL (150-400); Red Blood Cell Count 3.35 X10^6/uL (4.5-5.9); Red Cell Distribution Width 13.5 % (11.6-14.8); White Blood Cell Count 8.4 X10^3/uL (4.5-11.0)
[2022-07-14 07:15] LABS: BUN Creatinine Ratio 15.2 (6-22); Blood Urea Nitrogen 15 mg/dL (9-20); Calcium 8.2 mg/dL (8.4-10.2); Carbon Dioxide 22 mmol/L (22-32); Chloride 106 mmol/L (98-107); Estimated Glomerular Filt Rate > 60 mL/min (>60); Glucose 154 mg/dL (70-100); HEMOLYSIS < 15 (0-50); Potassium 3.8 mmol/L (3.4-5.1); Sodium 136 mmol/L (137-145)
[2022-07-14 09:04] VITALS: BP 137/77; PULSE 72; RESP 18; TEMP 35.8; O2SAT 95
[2022-07-14] MEDS: levoFLOXacin 250 MG TABLET 750 MG PO (09:54)
[2022-07-14] MEDS: ATORVASTATIN 20 MG TABLET PO (09:54)
[2022-07-14] MEDS: METFORMIN HCL 500 MG TABLET 1000 MG PO (09:54)
--- NOTE | 2022-07-14 11:00 | P.DS_ITS ---
History of Present Illness History of Present Illness Date Patient Seen: 07/12/22 Chief complaint: Shaking, Hot sepsis Narrative: Patient is a 57-year-old male who presented to the ER for evaluation of fevers had fast heart rate not feeling well.? His symptoms have been going on for appro ximately 48 hours.? He did have a left-sided ureteral stent that was placed a couple weeks ago.? He had an appointment on Tuesday (July 08) with his urologist to discuss potentially having the stent removed however the decision was made to keep it in a while longer because there was still some debris in his left kidney based on a x-ray.? Stated that after that appointment he started to feel poorly .? He did have a urine sample performed at that time.? He stated over the past 48 hours his symptoms have worsened.? He is still tolerating oral intake.? Is having fevers.? No chest pain.? No shortness of breath.? Is having some dysuria but this really has not changed since having the catheter in place.? He is not having any blood in his urine.? No change in bowel habits.? Is not currently on antibiotics. No nausea vomiting or diaphoresis. Able to move all extremities volitionally. No constipation or diarrhea. No numbness or tingling in any extremity. Discharge Providers Provider Date of admission: 07/12/22 09:09 Discharge Date: 07/14/22 Primary care physician: Liz Tony MD Discharge provider: Kenney Chen DO Summary Hospital Course Discharge Diagnosis: 1. Pyelonephritis.? Outpatient culture positive for Enterococcus with sensitivity to vanc, cipro.? Repeat culture also grew enterococcus. Continue vanco. Discharged on levaquin. 2. Concern for sepsis with new cough.? Blood cultures negative.? Continue zosyn as patient still febrile depsite antibiotics. Check CXR and resp PCR due to cough. 3. Urological stent s/p removal on 07/13. Stent taken out by Dr. Kasper urology. 4. Type 2 diabetes.? Continue patient's regular medication. 5. Hypertension. Maintain patient's regular medication, hold if systolic is less than 100. 6. Fever.? Treat with acetaminophen and IV Ketoralac. 7. Headache.? Treat with acetaminophen and IV ketorolac. 8. Pulm edema. CXR on 07/12 noted pulm edema. Given 40 IV lasix. Hospital Course: Admitted for fevers and sepsis from pyelonephritis from enterococcus related to outpatient ureteral stent placement. Had ureteral stent removed by urology during admission. Also may have had developing PNA on CXR and patient had a cough. Blood cultures negative. Enterococcus sensitive to quinolones, so discharged on po levaquin to complete 1 more week at home which would amount to 10 full days of abx treatment. Also had some pulm edema on CXR so given some lasix while admitted. Time Spent with Patient Time spent: Greater than 30 minutes Exam Vital Signs (past 8 hours): - 07/14/22 03:31 07/14/22 09:04 Temperature 97.7 F 96.4 F L Pulse Rate 75 72 Respiratory Rate 19 18 Blood Pressure 123/73 137/77 Pulse Oximetry 92 95 Oxygen Flow Rate 0 0 Fraction of Inspired Oxygen 24 SaO2/FiO2 Ratio 408 Oxygen Delivery Method Room Air Oxygen Flow Rate 0 Narrative Exam Narrative: Const General: Not in any acute medical distress. HEENT Head: normal to inspection and normocephalic, trachea is midline. Extraocular movements normal. Pupils equal react to light. Resp Effort & Inspection: normal respiratory effort Auscultation: clear to auscultation bilaterally Cardio Rate: tachycardia has settled somewhat and pulses 98 Rhythm: regular rhythm. Heart sounds S1 and S2 with no extra sounds or murmurs GI Inspection: normal to inspection Palpation: soft, No firm and No tender, bowel sounds normal. Skin General: no rashes or lesions noted Neuro General: patient alert, patient awake, patient oriented x3 and moves all extremities Cognition: normal cognition Speech: speech normal Extrem General: normal to inspection and capillary refill normal Psych Appearance: grossly normal and well kempt. No apparent acute mood change or depression. Objective Labs 07/14/22 06:27 07/14/22 06:27 Labs: Laboratory Results - last 24 hr 07/14/22 07/14/22 06:27 06:27 WBC 8.4 RBC 3.35 L Hgb 10.1 L Hct 29.4 L MCV 87.8 MCH 30.1 MCHC 34.3 RDW 13.5 Plt Count 157 Neut % (Auto) 81.2 H Lymph % (Auto) 6.6 L [place] % (Auto) 10.0 Eos % (Auto) 1.9 L Baso % (Auto) 0.3 Neut # (Auto) 6900 Lymph # (Auto) 600 L [place] # (Auto) 800 Eos # (Auto) 200 Baso # (Auto) 0 Sodium 136 L Potassium 3.8 Chloride 106 Carbon Dioxide 22 BUN 15 Creatinine 0.99 Estimated GFR > 60 BUN/Creatinine Ratio 15.2 Glucose 154 H Calcium 8.2 L PFSH Medical History History of broken finger History of high blood pressure History of kidney stones Hx of diabetes mellitus Lower urinary tract symptoms Microscopic hematuria Retained ureteral stent Secondhand smoke exposure Family History Father CAD (coronary artery disease) Hyperlipidemia Hypertension Mother Diabetes mellitus Hyperlipidemia Hypertension Thyroid disorder Urinary tract infection Social History marital status: unmarried,single number of children: 0 household members: none Smoking Status: Never smoker alcohol intake: former caffeine: Yes Type(s) of exercise: none Discharge Plan Discharge Plan Patient Disposition: Home Provider Discharge Comment: You were admitted for urinary tract infection after your stent was placed. This was removed by urology and your urine cultures grew enterococcus bacteria. It did not get into your blood. You also may have a pneumonia. You received IV antibiotics while in the hospital and will now need to finish a 1 week course of oral antibiotics at home which will treat your pneumonia and your UTI. I've also sent a cough suppressant. Please f/u with your PCP to check things over in a week or 2. Discharge orders & Medications Prescriptions: New levofloxacin 750 mg tablet 750 mg PO DAILY 7 Days Qty: 7 0RF benzonatate 200 mg capsule 200 mg PO TID PRN (Reason: cough) Qty: 30 0RF Continued metformin 1,000 mg tablet 1,000 mg PO BID atorvastatin 20 mg tablet 20 mg PO DAILY glimepiride 20 mg PO DAILY lisinopril 20 mg tablet 20 mg PO DAILY Follow up/Referrals: Liz Tony MD [Primary Care Provider] - 07/19/22 11:00 am (follow up 07/19/22 at 11:00am with Dr. Tony) Visit Report/Discharge Packet Instructions: DI for Urinary Tract Infection (UTI), DI for Sepsis -- Adult, Le vofloxacin, DI for Ureteral Stent Placement, Benzonatate (By mouth) Stand Alone Forms: Patient Portal/API, Stroke Signs & Symptoms Discharge Data Primary Care Provider: Liz Tony Discharges patient from system. Discharge Date/Time: 07/14/22 11:59 Quality VTE Deep Vein Thrombosis/Pulmonary Embolism Present on Admission: No
--- NOTE | 2022-07-14 11:53 | PC.NURSE ---
Pt is dressed and ready for discharge home with family. IV's have been removed. Went over d/c instructions with Pt-discussed d/c meds, time of last dose, reviewed stroke education, encouraged Pt to drink plenty of fluids to prevent constipation or dehydration, and to take his full course of abx as prescribed. Pt denied further questions and was taken out via w/c by S IRON WORKER to POV with family and all belongings.
== END 2022-07-14 11:59 | disposition home or self-care (01) | DRG 698 ==
LOC: ED 07-12 07:23 → AC 07-12 09:11
PROVIDERS: Emergency Medicine; Internal Medicine; Student in an Organized Health Care Education/Training Program; Admitting Provider Neuromusculoskeletal Medicine, Sports Medicine; Emergency Provider Emergency Medicine; PCP Internal Medicine; Referring Provider Emergency Medicine; Visit Provider Neuromusculoskeletal Medicine, Sports Medicine
DX: T83.592A Infection and inflammatory reaction due to indwelling ureteral stent, initial encounter (principal); A41.81 Sepsis due to Enterococcus; J18.9 Pneumonia, unspecified organism; N12 Tubulo-interstitial nephritis, not specified as acute or chronic; E11.9 Type 2 diabetes mellitus without complications; I10 Essential (primary) hypertension; R51.9 Headache, unspecified; Z20.822 Contact with and (suspected) exposure to COVID-19; Z79.84 Long term (current) use of oral hypoglycemic drugs
CPT/HCPCS: 36415; 51798; 71045; 74022; 80048; 80053; 80076; 81003; 81015; 82962; 83605; 83690; 83880; 84145; 85025; 85027; 85610; 85730; 87040; 87077; 87086; 87186; 87635; 93005; 93010; 96365; 96366; 96367; 96368; 96375; 99284; 99291; C9803; J0696; J1885; J1940; J2543

== ENCOUNTER 2022-08-27 08:56 | Emergency (ER) | payer BC, SELFPAY ==
[2022-07-12 10:07] VITALS: BMI 29.8
[2022-08-27] VITALS (7 sets, daily range): BP systolic 128–180; BP diastolic 75–90; PULSE 60–71; RESP 13–18; TEMP 36.4; O2SAT 96–100; BMI 29.1
--- NOTE | 2022-08-27 09:05 | DI.RAD.S_ITS ---
PROCEDURE: XR CHEST 1V INDICATIONS: chest pain TECHNIQUE: One view of the chest was acquired. COMPARISON: [facility], CR, XR CHEST 1V, 07/13/2022, 16:18. FINDINGS: Surgical changes and devices: None. Lungs and pleura: Lungs are clear. No pleural effusions or pneumothorax. Mediastinum: Mediastinal contours appear normal. Heart size is normal. Bones and chest wall: No suspicious bony lesions. Overlying soft tissues appear unremarkable. IMPRESSION: No acute cardiopulmonary abnormality. Approved by: Georgi Herbert M.D. on 08/27/2022 at 9:30
--- NOTE | 2022-08-27 09:15 | ED_ITS ---
HPI - Weakness General Chief complaint: Weakness Stated complaint: irregular heartbeat/not feeling good/HX sepsis Time Seen by Provider: 08/27/22 09:06 Source: patient Mode of arrival: Ambulatory History of Present Illness HPI Narrative: 57-year-old male nonsmoker with history kidney stones, ureteral stent, recent hospitalization for sepsis from urinary source and pneumonia presents with a chief complaint of a few days of increasing sensation of palpitations and generally feeling unwell. Patient was admitted on July 11 for the above and was discharged after 3 days, urology performed flexible cystoscopy with left stent removal. He was discharged with prescriptions for Levaquin for 7 days and encouraged to continue his other medications. He states that ever since his hospitalization he is felt rather frequent palpitations, most notably when he is at rest. He states that he feels hard heartbeat and often times a pause that is very unsettling. He generally feels unwell but as stated denies any fever chills, nor any nausea or vomiting. Related Data Home Medications Medication Instructions Recorded Confirmed atorvastatin 20 mg tablet 20 mg PO DAILY 06/22/22 07/12/22 glimepiride 20 mg PO DAILY 06/22/22 07/12/22 lisinopril 20 mg tablet 20 mg PO DAILY 06/22/22 07/12/22 metformin 1,000 mg tablet 1,000 mg PO BID 06/22/22 07/12/22 Previous Rx's Medication Instructions Recorded benzonatate 200 mg capsule 200 mg PO TID PRN cough #30 caps 07/14/22 Allergies Allergy/AdvReac Type Severity Reaction Status Date / Time No Known Drug Allergies Allergy Verified 07/09/22 09:02 Review of Systems Review of Systems Narrative: GENERAL: See HPI HEENT: Denies sinus pain, ear pain, sore throat, difficulty swallowing, dizziness. RESPIRATORY: See HPI CARDIOVASCULAR: See HPI GASTROINTESTINAL: Denies nausea, vomiting, abdominal pain, diarrhea, constipation, melena. : Denies dysuria, frequency, incontinence, hematuria, urinary retention. MUSCULOSKELETAL: denies weakness, joint pain, or bony pain SKIN: Denies rash, skin lesions, or other NEUROLOGIC: Denies weakness, headache, numbness, change in speech, confusion, seizures, incoordination. PSYCHIATRIC: No concerning psychosocial issues. 12 point review of systems is negative except for those stated above Patient History Medical History History of broken finger History of high blood pressure History of kidney stones Hx of diabetes mellitus Lower urinary tract symptoms Microscopic hematuria Retained ureteral stent Secondhand smoke exposure Family History Father CAD (coronary artery disease) Hyperlipidemia Hypertension Mother Diabetes mellitus Hyperlipidemia Hypertension Thyroid disorder Urinary tract infection Social History marital status: unmarried,single number of children: 0 household members: none Smoking Status: Never smoker alcohol intake: former caffeine: Yes Type(s) of exercise: none Smoking Status: Never smoker alcohol intake frequency: a few times a week Substance Use Type: does not use Exam Narrative Exam Narrative: GENERAL: [57] year old patient appears stated age. Well-developed patient, in mild distress. HEAD: Atraumatic. Normocephalic. EYES: Pupils equal round and reactive. Extraocular motions intact. No scleral icterus. No injection or drainage. ENT: Nose without bleeding, purulent drainage. Throat without erythema, tonsillar hypertrophy or exudate. Airway patent. NECK: Trachea midline. Non tender CARDIOVASCULAR: Regular rate and rhythm without murmurs, gallops, or rubs. RESPIRATORY: Clear to auscultation. Breath sounds equal bilaterally. No wheezes, rales, or rhonchi. GASTROINTESTINAL: Abdomen soft, non-tender, nondistended. EXTREMITIES: No edema or joint tenderness. BACK: Nontender without deformity or crepitance. No flank tenderness. NEURO: AOx3. SKIN: No rash or erythema of visible areas Initial Vital Signs Initial Vital Signs: Vital Signs Pulse Rate 61 08/27/22 09:01 Respiratory Rate 16 08/27/22 09:01 Pulse Oximetry 100 08/27/22 09:01 Course Orders Ordered: ED Orders 08/27/22 09:05 XR chest 1V Stat Urinalysis and Microscopic Stat 08/27/22 09:08 Complete Blood Count AUTO DIFF Stat Comprehensive Metabolic Panel Stat D Dimer Stat Lactate (Lactic Acid) Stat Lipase Stat Magnesium Stat PTT Partial Thromboplastin Twin Stat Procalcitonin Stat Prothrombin Time INR Stat Troponin & CK Cardiac Panel Stat 08/27/22 09:29 EKG-12 Lead Stat Vital Signs Vital signs: Vital Signs - 8 hr 08/27/22 09:04 08/27/22 09:01 08/27/22 09:02 Temperature 97.6 F Pulse Rate 61 61 61 Respiratory Rate 13 16 13 Blood Pressure 180/86 H Pulse Oximetry 99 100 100 Oxygen Delivery Method Room Air 08/27/22 09:02 08/27/22 09:30 08/27/22 09:30 Temperature Pulse Rate 71 Respiratory Rate 16 Blood Pressure 180/86 H 156/90 H Pulse Oximetry 98 Oxygen Delivery Method 08/27/22 10:00 08/27/22 10:00 Temperature Pulse Rate 60 Respiratory Rate 13 Blood Pressure 131/75 Pulse Oximetry 96 Oxygen Delivery Method MDM - Weakness Lab Data 08/27/22 09:08 08/27/22 09:08 Labs: Lab Results 08/27/22 08/27/22 08/27/22 Range/Units 09:08 09:08 09:08 WBC 5.6 (4.5-11.0) X10^3/uL RBC 4.69 (4.5-5.9) X10^6/uL Hgb 14.1 (13.5-17.5) g/dL Hct 41.8 (41-53) % MCV 89.3 (80-100) fL MCH 30.2 (26-34) PG MCHC 33.8 (30-36) % RDW 13.9 (11.6-14.8) % Plt Count 190 (150-400) X10^3/uL Neut % (Auto) 60.2 (50-75) % Lymph % (Auto) 25.4 (25-40) % [place] % (Auto) 9.5 (3-14) % Eos % (Auto) 4.1 H (2-4) % Baso % (Auto) 0.8 (0-2) % Neut # (Auto) 3400 (3408-9169) /uL Lymph # (Auto) 1400 (6421-1565) /uL [place] # (Auto) 500 (0-900) /uL Eos # (Auto) 200 (0-450) /uL Baso # (Auto) 0 (0-100) /uL PT 10.4 (10.1-12.7) SECONDS INR 0.9 (0.9-1.3) APTT 28 (26-36) SECONDS D-Dimer (<500) ng/ml Sodium 138 (137-145) mmol/L Potassium 4.1 (3.4-5.1) mmol/L Chloride 102 (98-107) mmol/L Carbon Dioxide 29 (22-32) mmol/L BUN 17 (9-20) mg/dL Creatinine 0.91 (0.66-1.25) mg/dL Estimated GFR > 60 (>60) mL/min BUN/Creatinine Ratio 18.7 (6-22) Glucose 124 H (70-100) mg/dL Lactate (0.7-2.1) mmol/L Calcium 9.4 (8.4-10.2) mg/dL Magnesium 2.2 (1.6-2.3) mg/dL Total Bilirubin 1.1 (0.2-1.3) mg/dL AST 33 (17-59) IU/L ALT 64 H (<50) IU/L Alkaline Phosphatase 64 (38-126) U/L Total Creatine Kinase 124 (55-170) U/L CK-MB (CK-2) TNP CK-MB (CK-2) Rel Index TNP Troponin I < 0.012 (0.01-0.034) ng/mL Total Protein 7.9 (6.3-8.2) g/dL Albumin 4.9 (3.5-5.0) g/dL Globulin 3.0 (1.7-4.1) g/dL Albumin/Globulin Ratio 1.6 (1.0-2.8) Lipase 94 (23-300) U/L Procalcitonin (<0.5) ng/mL 08/27/22 08/27/22 08/27/22 Range/Units 09:08 09:08 09:08 WBC (4.5-11.0) X10^3/uL RBC (4.5-5.9) X10^6/uL Hgb (13.5-17.5) g/dL Hct (41-53) % MCV (80-100) fL MCH (26-34) PG MCHC (30-36) % RDW (11.6-14.8) % Plt Count (150-400) X10^3/uL Neut % (Auto) (50-75) % Lymph % (Auto) (25-40) % [place] % (Auto) (3-14) % Eos % (Auto) (2-4) % Baso % (Auto) (0-2) % Neut # (Auto) (5682-6932) /uL Lymph # (Auto) (4727-8924) /uL [place] # (Auto) (0-900) /uL Eos # (Auto) (0-450) /uL Baso # (Auto) (0-100) /uL PT (10.1-12.7) SECONDS INR (0.9-1.3) APTT (26-36) SECONDS D-Dimer 538 H (<500) ng/ml Sodium (137-145) mmol/L Potassium (3.4-5.1) mmol/L Chloride (98-107) mmol/L Carbon Dioxide (22-32) mmol/L BUN (9-20) mg/dL Creatinine (0.66-1.25) mg/dL Estimated GFR (>60) mL/min BUN/Creatinine Ratio (6-22) Glucose (70-100) mg/dL Lactate 1.4 (0.7-2.1) mmol/L Calcium (8.4-10.2) mg/dL Magnesium (1.6-2.3) mg/dL Total Bilirubin (0.2-1.3) mg/dL AST (17-59) IU/L ALT (<50) IU/L Alkaline Phosphatase (38-126) U/L Total Creatine Kinase (55-170) U/L CK-MB (CK-2) CK-MB (CK-2) Rel Index Troponin I (0.01-0.034) ng/mL Total Protein (6.3-8.2) g/dL Albumin (3.5-5.0) g/dL Globulin (1.7-4.1) g/dL Albumin/Globulin Ratio (1.0-2.8) Lipase (23-300) U/L Procalcitonin 0.05 (<0.5) ng/mL Urine Dip Bedside Urine Glucose Negative Bedside Urine Bilirubin - Negative Bedside Urine Ketone - Negative Urine Specific [place] 1.015 Bedside Urine Occult Blood - Negative Bedside Urine pH 6.0 Bedside Urine Protein - Negative Bedside Urine Urobilinogen - Negative Bedside Urine Nitrite - Negative Bedside Urine Leukocytes - Negative Esterase MDM Narrative Medical decision making narrative: CC: 57-year-old male with palpitations Complicating co-morbidities: Recent hospitalization for sepsis, hypertension, hyperlipidemia, diabetes Data collected from: Patient Medical records reviewed: Prior notes reviewed in our EMR Differential considered, but not limited to: Pulmonary embolism versus cardiac ischemia versus electrolyte abnormality versus PVCs versus other Exam documented above, pertinent findings include: Heart rate regular, lungs clear and nonlabored, abdomen soft Lab Test results independently reviewed as above. Pertinent findings: No leukocytosis, anemia or left shift, D-dimer below age corrected cutoff, electrolytes unremarkable Independently reviewed EKG as above, though rhythm strip notes occasional PVCs Imaging studies independently reviewed: Chest x-ray without acute findings Discussion: Patient with reassuring history and physical exam with complaint frequent palpitations for the past month or so. He is found to have PVCs in the absence of other obvious findings. Labs are very reassuring, no electrolyte or renal function abnormalities, no signs of sepsis, D-dimer below age corrected cutoff, no need to pursue pulmonary embolism. Disposition: see below, along with detailed discharge instructions that have been reviewed with patient as well as indications for ED re-evaluation and additional outpatient follow up Discharge Plan Departure Patient Disposition: Home Clinical Impression: Premature ventricular contractions (PVCs) (VPCs) Instructions: Premature Ventricular Beats Activity Restrictions/Additional Instructions: *You have been diagnosed with [palpitations caused by pre ventricular contractions. As we discussed your history and physical exam are reassuring, labs and vital sign show no signs of sepsis, electrolyte abnormality, heart attack or blood clot.] *What to do: *Please continue to take your regular medications as directed. *Please follow up with your primary care provider in 2-3 days, call for an appoi ntment. Let them know you were seen in the Emergency Department and that we ask that you be seen in follow up. We will electronically transmit a record of today's note if your PCP is in our system *Return to Emergency Department if you should have any new, worsening or concerning symptoms, such as [fever greater than 101 F, shaking chills, worsening pain, persistent vomiting or other bothersome symptoms] Prescriptions: No Action benzonatate 200 mg capsule 200 mg PO TID PRN (Reason: cough) Qty: 30 0RF metformin 1,000 mg tablet 1,000 mg PO BID atorvastatin 20 mg tablet 20 mg PO DAILY glimepiride 20 mg PO DAILY lisinopril 20 mg tablet 20 mg PO DAILY Referrals: Brittny Rock MD [Physician] - Liz Tony MD [Primary Care Provider] - Stand Alone Forms: Patient Portal/API
[2022-08-27 09:19] LABS: Add Manual Diff / Slide Review NO; Basophils Absolute Auto 0 /uL (0-100); Basophils Percent Auto 0.8 % (0-2); Eosinophils Absolute Auto 200 /uL (0-450); Eosinophils Percent Auto 4.1 % (2-4); Hematocrit 41.8 % (41-53); Hemoglobin 14.1 g/dL (13.5-17.5); Lymphocytes Absolute Auto 1400 /uL (1100-4500); Lymphocytes Percent Auto 25.4 % (25-40); Mean Corpuscular HGB Conc 33.8 % (30-36); Mean Corpuscular Hemoglobin 30.2 PG (26-34); Mean Corpuscular Volume 89.3 fL (80-100); Monocytes Absolute Auto 500 /uL (0-900); Monocytes Percent Auto 9.5 % (3-14); Neutrophils Absolute Auto 3400 /uL (1500-7000); Neutrophils Percent Auto 60.2 % (50-75); Platelet Count 190 X10^3/uL (150-400); Red Blood Cell Count 4.69 X10^6/uL (4.5-5.9); Red Cell Distribution Width 13.9 % (11.6-14.8); White Blood Cell Count 5.6 X10^3/uL (4.5-11.0)
[2022-08-27 09:31] LABS: INR 0.9 (0.9-1.3); Prothrombin Time 10.4 SECONDS (10.1-12.7)
[2022-08-27 09:32] LABS: Alanine Aminotransferase 64 IU/L (<50); Albumin 4.9 g/dL (3.5-5.0); Albumin Globulin Ratio 1.6 (1.0-2.8); Alkaline Phosphatase 64 U/L (38-126); Aspartate Aminotransferase 33 IU/L (17-59); BUN Creatinine Ratio 18.7 (6-22); Bilirubin Total 1.1 mg/dL (0.2-1.3); Blood Urea Nitrogen 17 mg/dL (9-20); Calcium 9.4 mg/dL (8.4-10.2); Carbon Dioxide 29 mmol/L (22-32); Chloride 102 mmol/L (98-107); Creatine Kinase 124 U/L (55-170); Estimated Glomerular Filt Rate > 60 mL/min (>60); Glucose 124 mg/dL (70-100); HEMOLYSIS < 15 (0-50); Lipase 94 U/L (23-300); Magnesium 2.2 mg/dL (1.6-2.3); Potassium 4.1 mmol/L (3.4-5.1); Sodium 138 mmol/L (137-145); Total Protein 7.9 g/dL (6.3-8.2)
[2022-08-27 09:33] LABS: Lactate (Lactic Acid) 1.4 mmol/L (0.7-2.1)
[2022-08-27 09:34] LABS: PTT Partial Thromboplastin Tim 28 SECONDS (26-36)
[2022-08-27 09:43] LABS: D Dimer 538 ng/ml (<500)
[2022-08-27 09:44] LABS: Troponin I < 0.012 ng/mL (0.01-0.034)
[2022-08-27 09:49] LABS: Procalcitonin 0.05 ng/mL (<0.5)
== END 2022-08-27 10:41 | disposition home or self-care (01) ==
PROVIDERS: Emergency Provider Emergency Medicine; PCP Internal Medicine
DX: I49.3 Ventricular premature depolarization (principal); R07.9 Chest pain, unspecified
CPT/HCPCS: 36415; 71045; 80053; 81003; 82550; 83605; 83690; 83735; 84145; 84484; 85025; 85379; 85610; 85730; 93005; 93010; 99284

== ENCOUNTER → 2022-12-24 14:38 | Outpatient (CLI) | payer BC, SELFPAY ==
[2022-07-12 10:07] VITALS: BMI 29.8
[2022-12-24 16:32] LABS: Appearance Urine UA CLEAR; Bilirubin Urine UA NEGATIVE (NEGATIVE); Color Urine UA YELLOW; Glucose Urine UA TRACE g/dL (Negative); Ketones Urine UA NEGATIVE (NEGATIVE); Leukocyte Esterase Urine UA NEGATIVE (NEGATIVE); Nitrite Urine UA NEGATIVE (Negative); Occult Blood Urine UA NEGATIVE (Negative); Protein Urine UA NEGATIVE (Negative); Urobilinogen Urine UA 0.2 E.U./dL (0.2); pH Urine UA 5.5 (4.5-8.0)
[2022-12-24 16:49] LABS: Bacteria Urine None Seen; Culture Indicated Urine Cult Not Indicated; RBC Urine 0-1/HPF (0-5/HPF); Squamous Epithelial Cell Urine 0-1 /HPF (0-5/HPF); WBC Urine 0-1/HPF (0-5/HPF)
== END ==
PROVIDERS: PCP Internal Medicine; Referring Provider Urology; Visit Provider Urology
DX: T83.511A Infection and inflammatory reaction due to indwelling urethral catheter, initial encounter (principal); N39.0 Urinary tract infection, site not specified; A41.9 Sepsis, unspecified organism; R39.9 Unspecified symptoms and signs involving the genitourinary system; R31.29 Other microscopic hematuria
CPT/HCPCS: 81001

== ENCOUNTER → 2023-01-10 09:08 | Outpatient (CLI) | payer BC, SELFPAY ==
[2022-07-12 10:07] VITALS: BMI 29.8
--- NOTE | 2023-01-10 09:08 | DI.CT.S_ITS ---
PROCEDURE: CT ABDOMEN PELVIS WO/W CON INDICATIONS: Kidney stones/abdominal pain/history of sepsis TECHNIQUE: Optional 5 mm thick noncontrast images acquired from the diaphragm to the symphysis pubis. After the administration of intravenous contrast, 5 mm thick images acquired from the diaphragm to the symphysis pubis after a 10-minute delay. 2 mm thick coronal and sagittal reformats were then performed of the kidneys and ureters. For radiation dose reduction, the following was used: automated exposure control, adjustment of mA and/or kV according to patient size. COMPARISON: [facility], CT, CT KIDNEY URETER BLADDER (KUB), 06/15/2022, 11:51. FINDINGS: Image quality: Excellent. Lung bases: Lung bases are clear. Heart size is normal. Urinary system: Both kidneys are normal in size, without hydronephrosis pre-contrast images. There is no right renal stone noted. There is a nonobstructing left lower pole renal stone measuring 3 mm with a Hounsfield measurement 537.0. No perinephric fat stranding. There is normal bilateral renal enhancement. Renal calyces appear normal in morphology when filled with contrast. Opacified portions of both ureters demonstrate normal caliber. Bladder wall thickness is normal. No calcified bladder stones. Moderate prostatomegaly. Other solid organs: Liver is normal in size and enhancement. Mild diffuse hepatic steatosis. Gallbladder is unremarkable without calcified gallstones. . Biliary system is non dilated. Pancreas enhances normally. Spleen is normal in size and enhancement. No adrenal nodules. Peritoneum and bowel: Bowel loops demonstrate normal wall thickness and caliber. No free fluid or air. Nodes and vessels: No retroperitoneal or mesenteric adenopathy by size criteria. Aorta and inferior vena cava are normal in size. Abdominal wall: No ventral hernias. Pelvis: No pathologic free pelvic fluid. Fat containing right inguinal hernia. No inguinal adenopathy. Bones: No suspicious bony lesions. No vertebral body compression fractures. IMPRESSION: 1. Nonobstructing 3 mm stone, lower pole of left kidney. 2. No right renal stones, no ureteral stones, no hydronephrosis, no findings suspicious for malignancy. 3. Moderate prostatomegaly. 4. Small right inguinal hernia containing fat. 5. Mild diffuse hepatic steatosis. In the Dictated by: Flynn Sue M.D. on 01/10/2023 at 11:16 Approved by: Flynn Sue M.D. on 01/10/2023 at 11:23
== END ==
PROVIDERS: PCP Internal Medicine; Referring Provider Urology; Visit Provider Urology
DX: N20.0 Calculus of kidney (principal); K76.0 Fatty (change of) liver, not elsewhere classified; K40.90 Unilateral inguinal hernia, without obstruction or gangrene, not specified as recurrent; N40.0 Benign prostatic hyperplasia without lower urinary tract symptoms; N39.0 Urinary tract infection, site not specified; R10.9 Unspecified abdominal pain; Z87.442 Personal history of urinary calculi; Z86.19 Personal history of other infectious and parasitic diseases
CPT/HCPCS: 74178

== ENCOUNTER → 2023-04-15 10:22 | Outpatient (CLI) | payer BC, SELFPAY ==
[2022-07-12 10:07] VITALS: BMI 29.8
--- NOTE | 2023-04-15 10:23 | DI.RAD.S_ITS ---
PROCEDURE: XR KUB INDICATIONS: Kidney stone TECHNIQUE: One view of the abdomen acquired. COMPARISON: [facility], CT, CT ABDOMEN PELVIS WO/W CON, 01/10/2023, 9:25. [facility], CR, XR ACUTE ABDOMEN SERIES, 07/11/2022, 20:31. FINDINGS: Surgical changes and devices: None. Bowel: Bowel gas pattern is normal. Soft tissues: 4 mm left lower pole intrarenal calcification. No other visible urinary calcifications. Visible organ shadows are within normal limits. Bones: No suspicious bony lesions. 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 IMPRESSION: Stable 4 mm nonobstructing left lower pole intrarenal calcification, similar compared to the CT scan. Dictated by: Kiki Munoz M.D. on 04/15/2023 at 14:42 Approved by: Kiki Munoz M.D. on 04/15/2023 at 14:44
[2023-04-15 12:51] LABS: Calcium 9.6 mg/dL (8.4-10.2)
== END ==
LOC: LAB 10:23 → RAD 10:23
PROVIDERS: PCP Internal Medicine; Referring Provider Urology; Visit Provider Urology
DX: N20.0 Calculus of kidney (principal); N39.0 Urinary tract infection, site not specified; R31.29 Other microscopic hematuria; T83.511A Infection and inflammatory reaction due to indwelling urethral catheter, initial encounter; R39.9 Unspecified symptoms and signs involving the genitourinary system; Z96.0 Presence of urogenital implants; Z87.442 Personal history of urinary calculi; Z77.22 Contact with and (suspected) exposure to environmental tobacco smoke (acute) (chronic)
CPT/HCPCS: 36415; 74018; 82310

== ENCOUNTER → 2023-12-06 10:04 | Outpatient (CLI) | payer BC, SELFPAY ==
[2022-07-12 10:07] VITALS: BMI 29.8
[2023-12-06 11:06] LABS: Hemoglobin A1C% w Est Avg Glu 6.5 % (4.0-6.0)
[2023-12-06 18:12] LABS: Prostate Specific Antigen Scrn 3.97 ng/mL (0.1-4.0)
== END ==
LOC: LAB 10:11
PROVIDERS: PCP Family Medicine; Referring Provider Urology; Visit Provider Urology
DX: E11.9 Type 2 diabetes mellitus without complications (principal); Z12.5 Encounter for screening for malignant neoplasm of prostate
CPT/HCPCS: 36415; 83036; G0103

== ENCOUNTER → 2024-02-24 13:45 | Outpatient (CLI) | payer BC, SELFPAY ==
[2022-07-12 10:07] VITALS: BMI 29.8
--- NOTE | 2024-02-24 13:46 | DI.RAD.S_ITS ---
PROCEDURE: XR KUB INDICATIONS: Follow-up left kidney stone TECHNIQUE: One view of the abdomen acquired. COMPARISON: [facility], CR, XR KUB, 04/15/2023, 10:40. [facility], CR, XR ACUTE ABDOMEN SERIES, 07/11/2022, 20:31. [facility], CR, XR KUB, 07/02/2022, 12:50. [facility], CR, XR KUB, 06/22/2022, 13:59. FINDINGS: Surgical changes and devices: None. Bowel: Bowel gas pattern is normal. Soft tissues: Persistent left 4 mm lower pole renal calculus. Visualized solid organ contours appear normal in size. Bones: No acute abnormality. Moderate bilateral hip osteoarthritis. IMPRESSION: Persistent left 4 mm calyceal nephrolithiasis Dictated by: Manav Frias M.D. on 02/24/2024 at 17:06 Approved by: Manav Frias M.D. on 02/24/2024 at 17:08
[2024-02-24 15:03] LABS: Prostate Specific Antigen 3.27 ng/mL (0.10-4.00)
== END ==
PROVIDERS: PCP Family Medicine; Referring Provider Urology; Visit Provider Urology
DX: N20.0 Calculus of kidney (principal); Z87.442 Personal history of urinary calculi; R39.9 Unspecified symptoms and signs involving the genitourinary system
CPT/HCPCS: 36415; 74018; 84153

== ENCOUNTER → 2024-03-06 14:53 | Outpatient (CLI) | payer BC, SELFPAY ==
[2022-07-12 10:07] VITALS: BMI 29.8
== END ==
PROVIDERS: PCP Family Medicine; Visit Provider Urology
DX: N20.0 Calculus of kidney (principal); R31.29 Other microscopic hematuria; R82.81 Pyuria; R39.9 Unspecified symptoms and signs involving the genitourinary system; Z77.22 Contact with and (suspected) exposure to environmental tobacco smoke (acute) (chronic); Z87.442 Personal history of urinary calculi
CPT/HCPCS: 51798; 81002; 87077; 87086; 87147; 87186; 99214

== ENCOUNTER → 2024-06-14 17:10 | Outpatient (CLI) | payer BC, SELFPAY ==
[2022-07-12 10:07] VITALS: BMI 29.8
[2024-06-14 17:44] LABS: Add Manual Diff / Slide Review NO; Basophils Absolute Auto 0 /uL (0-100); Basophils Percent Auto 0.6 % (0-2); Eosinophils Absolute Auto 200 /uL (0-450); Eosinophils Percent Auto 3.9 % (2-4); Hemoglobin 14.8 g/dL (13.5-17.5); Lymphocytes Absolute Auto 1400 /uL (1100-4500); Lymphocytes Percent Auto 24.3 % (25-40); Mean Corpuscular HGB Conc 33.6 % (30-36); Mean Corpuscular Hemoglobin 30.8 PG (26-34); Mean Corpuscular Volume 91.7 fL (80-100); Monocytes Absolute Auto 600 /uL (0-900); Monocytes Percent Auto 9.6 % (3-14); Neutrophils Absolute Auto 3600 /uL (1500-7000); Neutrophils Percent Auto 61.6 % (50-75); Platelet Count 218 X10^3/uL (150-400); Red Cell Distribution Width 13.5 % (11.6-14.8); White Blood Cell Count 5.8 X10^3/uL (4.5-11.0)
[2024-06-14 18:04] LABS: Hemoglobin A1C% w Est Avg Glu 6.2 % (4.0-6.0)
[2024-06-14 18:23] LABS: Alanine Aminotransferase 52 IU/L (<50); Albumin 4.8 g/dL (3.5-5.0); Albumin Globulin Ratio 1.5 (1.0-2.8); Alkaline Phosphatase 63 U/L (38-126); Aspartate Aminotransferase 44 IU/L (17-59); BUN Creatinine Ratio 13.6 (6-22); Bilirubin Total 1.5 mg/dL (0.2-1.3); Blood Urea Nitrogen 14 mg/dL (9-20); Calcium 9.9 mg/dL (8.4-10.2); Carbon Dioxide 28 mmol/L (22-32); Chloride 101 mmol/L (98-107); Cholesterol 163 mg/dL (140-199); Estimated Glomerular Filt Rate > 60 mL/min (>60); Globulin 3.1 g/dL (1.7-4.1); Glucose 105 mg/dL (70-100); HDL Cholesterol 54 mg/dL (40-60); HEMOLYSIS < 15 (0-50); LDL Cholesterol Calculated 79 mg/dL (<100); Potassium 4.3 mmol/L (3.4-5.1); Sodium 139 mmol/L (137-145); Total Protein 7.9 g/dL (6.3-8.2); Triglycerides 150 mg/dL (35-150)
[2024-06-14 18:35] LABS: Microalbumin Urine Random 0.9 mg/dL (0-1.6)
[2024-06-14 18:54] LABS: TSH w/ Reflex to FT4 1.28 uIU/mL (0.47-4.68)
== END ==
PROVIDERS: PCP Family Medicine; Referring Provider Family Medicine; Visit Provider Family Medicine
DX: E11.9 Type 2 diabetes mellitus without complications (principal); Z79.899 Other long term (current) drug therapy; E78.5 Hyperlipidemia, unspecified; R82.994 Hypercalciuria; R31.29 Other microscopic hematuria
CPT/HCPCS: 36415; 80053; 80061; 82043; 82570; 83036; 84443; 85025